=== PATIENT | female | born 1950 | race Hispanic/Latino ===

== ENCOUNTER 2019-05-22 19:59 | Inpatient (IN) | payer MEDICARE ==
[2019-05-22] MEDS ORDERED: ATROVENT IH ONE ×2 (20:22→22:16)
[2019-05-22] MEDS ORDERED: MAGNESIUM SULFATE 2GM/50ML 2 GM/50 ML BAG IV ONE (20:22)
[2019-05-22] MEDS ORDERED: PROVENTIL IH ONE (20:22)
[2019-05-22] MEDS ORDERED: SOLU-Medrol IV ONE (20:22)
[2019-05-22] MEDS ORDERED: LEVAQUIN 750MG/150ML 750 MG/150 ML BAG IV ONE (20:25)
[2019-05-22] MEDS ORDERED: VASELINE LIP THERAPY TP PRN (20:25)
[2019-05-22] MEDS ORDERED: VERSED IV PRN (20:25)
[2019-05-22] MEDS ORDERED: SUBLIMAZE IV PRN (20:25)
[2019-05-22] MEDS ORDERED: NACL 0.9% 1000 ML 1,000 ML IV ONE ×2 (20:25→21:28)
[2019-05-22] MEDS ORDERED: ARTIFICIAL TEARS OPHTH OINT OU PRN (20:25)
--- NOTE | 2019-05-22 20:31 | Emergency Department Report ---
ED General Adult HPI - General Chief complaint: Dyspnea/Respdistress Stated complaint: RESP DISTRESS Time Seen by Provider: 05/22/19 20:21 Source: EMS (verbal report received from EMS.ems notes not available at time of chart dictation), RN notes reviewed Mode of arrival: Stretcher Limitations: Altered Mental Status - History of Present Illness Initial comments: This is a 68-year-old female. This patient is not known to this provider previously. She presumably has a history of COPD. We do not know who her primary care doctor is. We do not know what medicine she takes or if she has any additional past medical history. The patient is brought to the hospital by EMS as a reported nontraumatic out of hospital respiratory arrest. EMS reports the patient was found in bed, actively breathing. The patient has had pulses consistently, and has not arrested. EMS intubated the patient in the field with a 6.0 endotracheal tube. EMS reports normal Accu-Chek. Upon arrival to the ER, the patient is intubated, with strong pulses, blood pressure in the 200s, and is awake and moving 4 extremities. Her Accu-Chek in the ER is within normal limits. The patient is given 20 mg of etomidate, 5 mg of Versed, 100 mg of rocuronium. Her 6.0 endotracheal tube is removed, she is placed on nasal cannula at 15 L/m, and receives aggressive bag valve mask ventilation. Using video laryngoscopy, a 7.5 endotracheal tube was inserted, with direct visualizat ion of the vocal cords, and appropriate post intubation and tidal capnography color change. After intubation, patient disconnected from the ventilator circuit, and she has diaphragmatic pressure and excursion applied to evaluate presumed air trapping. Patient is currently intubated and sedated, on a ventilator, and is not able to provide additional history. No family or friends are available at this time. The patient's physical exam was otherwise unremarkable, there were no signs of trauma. We contacted the intensive care physician on-call, Dr. Kiser, who agrees with placement into the intensive care unit. Patient will be covered empirically with fluids and antibiotics for community-acquired pneumonia/sepsis, and she'll be ventilated on lung protective strategy. -: unknown Quality: other Consistency: other Improves with: other Worsens with: other Associated Symptoms: other - Related Data Allergies Allergy/AdvReac Type Severity Reaction Status Date / Time Unable to Assess Allergy Unverified 05/22/19 20:18 ED Review of Systems ROS: Stated complaint: RESP DISTRESS Other details as noted in HPI Comment: Unobtainable due to pts medical conditions ED Past Medical Hx - Past Medical History Previous Medical History?: Yes Hx COPD: Yes Additional medical history: emphysema - Social History Smoking Status: Unknown if ever smoked ED Physical Exam - General Limitations: Altered Mental Status General appearance: obtunded - Head Head exam: Present: atraumatic, normocephalic - Eye Eye exam: Present: normal appearance, EOMI - ENT ENT exam: Present: mucous membranes dry, normal external ear exam - Neck Neck exam: Present: normal inspection, full ROM. Absent: tenderness, meningismus - Respiratory Respiratory exam: Present: respiratory distress, decreased breath sounds - Cardiovascular Cardiovascular Exam: Present: normal rhythm, tachycardia, normal heart sounds. Absent: systolic murmur, diastolic murmur, rubs, gallop - GI/Abdominal GI/Abdominal exam: Present: soft. Absent: distended, tenderness, rigid, pulsatile mass - Rectal Rectal exam: Present: normal inspection - External exam: Present: normal external exam - Extremities Exam Extremities exam: Present: normal inspection, other (2+ pulses noted in the bilateral upper, lower extremities. Compartments soft. No long bony tenderness. The pelvis is stable.). Absent: tenderness, pedal edema, joint swelling, calf tenderness - Back Exam Back exam: Present: normal inspection. Absent: tenderness, CVA tenderness (R), paraspinal tenderness, vertebral tenderness - Neurological Exam Neurological exam: Present: altered (patient intubated. Prior to paralysis and adduction, moving 4 extremities. Detailed neurologic examination is not possible at this time) - Skin Skin exam: Present: warm, dry, intact, normal color ED Course Vital Signs 05/22/19 05/22/19 05/22/19 20:18 20:24 20:26 Temperature 97.9 F Pulse Rate 102 H 93 H 88 Pulse Rate [ Anterior] Respiratory 22 18 Rate Respiratory Rate [Anterior] Blood Pressure 208/107 143/74 Blood Pressure 208/107 [Right] O2 Sat by Pulse 100 100 98 Oximetry 05/22/19 05/22/19 05/22/19 21:35 21:50 22:00 Temperature Pulse Rate 86 91 H 88 Pulse Rate [ Anterior] Respiratory 18 18 18 Rate Respiratory Rate [Anterior] Blood Pressure Blood Pressure 199/96 205/103 202/103 [Right] O2 Sat by Pulse 99 99 100 Oximetry 05/22/19 05/22/19 05/22/19 22:05 22:10 22:20 Temperature Pulse Rate 89 91 H 93 H Pulse Rate [ Anterior] Respiratory 18 18 Rate Respiratory Rate [Anterior] Blood Pressure 202/100 Blood Pressure 202/100 163/81 140/72 [Right] O2 Sat by Pulse 100 98 Oximetry 05/22/19 05/22/19 05/22/19 22:30 22:45 23:00 Temperature Pulse Rate 92 H 90 88 Pulse Rate [ Anterior] Respiratory 18 24 24 Rate Respiratory Rate [Anterior] Blood Pressure 127/67 133/73 Blood Pressure 129/68 [Right] O2 Sat by Pulse 97 96 98 Oximetry 05/22/19 05/22/19 05/22/19 23:15 23:30 23:44 Temperature Pulse Rate 90 88 87 Pulse Rate [ Anterior] Respiratory 24 24 24 Rate Respiratory Rate [Anterior] Blood Pressure 144/76 143/81 143/81 Blood Pressure [Right] O2 Sat by Pulse 99 99 99 Oximetry 05/22/19 05/23/19 05/23/19 23:45 00:00 00:15 Temperature Pulse Rate 87 87 87 Pulse Rate [ Anterior] Respiratory 24 24 24 Rate Respiratory Rate [Anterior] Blood Pressure 152/79 160/83 166/86 Blood Pressure [Right] O2 Sat by Pulse 99 99 98 Oximetry 05/23/19 05/23/19 05/23/19 00:30 00:45 01:00 Temperature Pulse Rate 86 89 85 Pulse Rate [ Anterior] Respiratory 24 24 24 Rate Respiratory Rate [Anterior] Blood Pressure 164/92 165/87 172/95 Blood Pressure 172/95 [Right] O2 Sat by Pulse 98 98 98 Oximetry 05/23/19 05/23/19 05/23/19 01:08 01:30 01:40 Temperature Pulse Rate 85 85 85 Pulse Rate [ Anterior] Respiratory 24 18 Rate Respiratory Rate [Anterior] Blood Pressure 172/95 154/81 Blood Pressure 154/81 [Right] O2 Sat by Pulse 99 97 Oximetry 05/23/19 05/23/19 05/23/19 02:00 02:15 02:30 Temperature Pulse Rate 85 85 85 Pulse Rate [ Anterior] Respiratory 24 24 24 Rate Respiratory Rate [Anterior] Blood Pressure 157/86 154/86 157/88 Blood Pressure [Right] O2 Sat by Pulse 96 96 95 Oximetry 05/23/19 05/23/19 05/23/19 02:45 03:00 03:15 Temperature Pulse Rate 83 82 82 Pulse Rate [ Anterior] Respiratory 23 24 18 Rate Respiratory Rate [Anterior] Blood Pressure 161/89 163/88 165/87 Blood Pressure [Right] O2 Sat by Pulse 96 96 96 Oximetry 05/23/19 05/23/19 05/23/19 03:30 03:35 03:45 Temperature Pulse Rate 82 82 83 Pulse Rate [ Anterior] Respiratory 24 22 20 Rate Respiratory Rate [Anterior] Blood Pressure 160/87 162/93 Blood Pressure 160/87 [Right] O2 Sat by Pulse 96 96 96 Oximetry 05/23/19 05/23/19 05/23/19 04:00 04:15 04:30 Temperature Pulse Rate 80 82 80 Pulse Rate [ Anterior] Respiratory 17 24 18 Rate Respiratory Rate [Anterior] Blood Pressure 166/89 161/90 163/92 Blood Pressure [Right] O2 Sat by Pulse 96 96 96 Oximetry 05/23/19 05/23/19 05/23/19 04:38 04:45 05:00 Temperature Pulse Rate 84 80 82 Pulse Rate [ Anterior] Respiratory 21 13 Rate Respiratory Rate [Anterior] Blood Pressure 166/92 157/91 Blood Pressure [Right] O2 Sat by Pulse 100 96 96 Oximetry 05/23/19 05/23/19 05/23/19 05:15 05:30 05:45 Temperature Pulse Rate 80 81 80 Pulse Rate [ Anterior] Respiratory 17 22 12 Rate Respiratory Rate [Anterior] Blood Pressure 164/91 163/91 164/90 Blood Pressure [Right] O2 Sat by Pulse 97 98 98 Oximetry 05/23/19 05/23/19 05/23/19 06:00 06:15 06:30 Temperature Pulse Rate 81 81 81 Pulse Rate [ Anterior] Respiratory 13 18 16 Rate Respiratory Rate [Anterior] Blood Pressure 162/96 161/88 163/91 Blood Pressure [Right] O2 Sat by Pulse 98 98 99 Oximetry 05/23/19 05/23/19 05/23/19 06:33 06:45 07:00 Temperature Pulse Rate 82 82 77 Pulse Rate [ Anterior] Respiratory 14 10 L 12 Rate Respiratory Rate [Anterior] Blood Pressure 155/88 144/82 Blood Pressure 163/91 [Right] O2 Sat by Pulse 99 98 99 Oximetry 05/23/19 05/23/19 05/23/19 07:15 07:30 07:36 Temperature 94.1 F L Pulse Rate 77 75 Pulse Rate [ Anterior] Respiratory 15 16 Rate Respiratory Rate [Anterior] Blood Pressure 138/78 128/76 Blood Pressure [Right] O2 Sat by Pulse 99 100 Oximetry 05/23/19 05/23/19 05/23/19 07:45 07:51 08:01 Temperature Pulse Rate 79 78 77 Pulse Rate [ Anterior] Respiratory 20 18 Rate Respiratory Rate [Anterior] Blood Pressure 132/76 132/76 132/76 Blood Pressure [Right] O2 Sat by Pulse 100 100 100 Oximetry 05/23/19 05/23/19 05/23/19 08:15 08:30 09:00 Temperature Pulse Rate 79 83 85 Pulse Rate [ Anterior] Respiratory 25 H 13 24 Rate Respiratory Rate [Anterior] Blood Pressure 125/73 121/72 122/67 Blood Pressure [Right] O2 Sat by Pulse 98 99 99 Oximetry 05/23/19 05/23/19 05/23/19 09:30 10:00 10:30 Temperature Pulse Rate 90 89 88 Pulse Rate [ Anterior] Respiratory 12 12 24 Rate Respiratory Rate [Anterior] Blood Pressure 122/65 125/74 129/72 Blood Pressure [Right] O2 Sat by Pulse 100 100 100 Oximetry 05/23/19 05/23/19 05/23/19 11:30 11:31 12:00 Temperature 98.7 F Pulse Rate 93 H 75 Pulse Rate [ Anterior] Respiratory 24 24 Rate Respiratory Rate [Anterior] Blood Pressure 136/71 132/74 Blood Pressure [Right] O2 Sat by Pulse 99 100 Oximetry 05/23/19 05/23/19 05/23/19 12:30 12:39 13:00 Temperature Pulse Rate 78 75 74 Pulse Rate [ Anterior] Respiratory 24 24 Rate Respiratory Rate [Anterior] Blood Pressure 146/82 146/82 141/81 Blood Pressure [Right] O2 Sat by Pulse 100 100 100 Oximetry 05/23/19 05/23/19 05/23/19 13:31 14:00 14:30 Temperature Pulse Rate 76 73 74 Pulse Rate [ Anterior] Respiratory 24 24 24 Rate Respiratory Rate [Anterior] Blood Pressure 137/89 144/78 143/82 Blood Pressure [Right] O2 Sat by Pulse 100 100 100 Oximetry 05/23/19 05/23/19 05/23/19 15:00 15:30 16:00 Temperature Pulse Rate 74 75 78 Pulse Rate [ Anterior] Respiratory 24 24 24 Rate Respiratory Rate [Anterior] Blood Pressure 137/76 146/78 144/74 Blood Pressure [Right] O2 Sat by Pulse 99 100 100 Oximetry 05/23/19 05/23/19 05/23/19 16:30 17:00 17:30 Temperature Pulse Rate 75 73 73 Pulse Rate [ Anterior] Respiratory 24 24 24 Rate Respiratory Rate [Anterior] Blood Pressure 126/69 116/62 118/63 Blood Pressure [Right] O2 Sat by Pulse 100 Oximetry 05/23/19 05/23/19 05/23/19 18:00 18:30 19:00 Temperature Pulse Rate 76 74 74 Pulse Rate [ Anterior] Respiratory 24 24 24 Rate Respiratory Rate [Anterior] Blood Pressure 121/69 118/61 123/66 Blood Pressure [Right] O2 Sat by Pulse 100 100 100 Oximetry 05/23/19 05/23/19 05/23/19 19:20 19:30 20:00 Temperature 98.3 F Pulse Rate 74 78 Pulse Rate [ Anterior] Respiratory 24 24 Rate Respiratory Rate [Anterior] Blood Pressure 119/61 136/68 Blood Pressure [Right] O2 Sat by Pulse 100 100 99 Oximetry 05/23/19 05/23/19 05/23/19 20:30 20:53 21:00 Temperature Pulse Rate 73 72 73 Pulse Rate [ Anterior] Respiratory 24 22 Rate Respiratory Rate [Anterior] Blood Pressure 125/69 133/75 133/75 Blood Pressure [Right] O2 Sat by Pulse 98 100 98 Oximetry 05/23/19 05/23/19 05/24/19 22:00 23:00 00:00 Temperature Pulse Rate 70 84 70 Pulse Rate [ Anterior] Respiratory 24 18 Rate Respiratory Rate [Anterior] Blood Pressure 132/72 129/72 133/77 Blood Pressure [Right] O2 Sat by Pulse 100 99 100 Oximetry 05/24/19 05/24/19 05/24/19 00:01 00:11 01:00 Temperature Pulse Rate 74 71 68 Pulse Rate [ Anterior] Respiratory 24 24 24 Rate Respiratory Rate [Anterior] Blood Pressure 128/69 128/69 123/68 Blood Pressure [Right] O2 Sat by Pulse 100 100 100 Oximetry 05/24/19 05/24/19 05/24/19 02:00 03:00 04:00 Temperature Pulse Rate 66 78 85 Pulse Rate [ Anterior] Respiratory 24 24 25 H Rate Respiratory Rate [Anterior] Blood Pressure 123/71 131/81 144/77 Blood Pressure [Right] O2 Sat by Pulse 100 97 100 Oximetry 05/24/19 05/24/19 05/24/19 05:00 06:00 07:00 Temperature Pulse Rate 65 68 69 Pulse Rate [ Anterior] Respiratory 24 18 24 Rate Respiratory Rate [Anterior] Blood Pressure 136/75 137/76 145/76 Blood Pressure [Right] O2 Sat by Pulse 100 98 98 Oximetry 05/24/19 05/24/19 05/24/19 07:16 08:00 08:30 Temperature Pulse Rate 65 78 64 Pulse Rate [ Anterior] Respiratory 18 24 Rate Respiratory Rate [Anterior] Blood Pressure 141/76 154/83 149/82 Blood Pressure [Right] O2 Sat by Pulse 100 99 98 Oximetry 05/24/19 05/24/19 05/24/19 08:47 08:51 09:00 Temperature Pulse Rate 61 62 Pulse Rate [ 82 Anterior] Respiratory 24 24 Rate Respiratory 18 Rate [Anterior] Blood Pressure 153/83 162/85 Blood Pressure [Right] O2 Sat by Pulse 98 99 Oximetry 05/24/19 05/24/19 09:11 09:32 Temperature Pulse Rate 85 87 Pulse Rate [ Anterior] Respiratory 19 20 Rate Respiratory Rate [Anterior] Blood Pressure 162/85 Blood Pressure [Right] O2 Sat by Pulse 100 99 Oximetry - Reevaluation(s) Reevaluation #1: 05/22/19 21:08 Differential diagnosis, including not limited to: Respiratory failure, secondary to COPD, pulmonary embolism, pneumonia, sepsis, pneumothorax, or cranial lesion Assessment and plan: 68-year-old female with respiratory failure, requiring intubation, currently sedated, hemodynamically stable, physical exam otherwise unremarkable. CT scan of the brain, chest have been ordered. IV fluids ordered, antibiotics ordered, sedation package ordered. Critical care has been consulted. We will reassess once her data points have resulted. Anticipate admission to this hospital for further care. Long-term prognosis is poor, patient most likely has end-stage COPD. Reevaluation #2: 05/22/19 21:28 Laboratory studies reviewed and appreciated. Patient requires emergent an exp edient diagnostics to exclude potentially time sensitive diagnoses, such as pulmonary embolism, aortic dissection, and pneumothorax. Therefore, CT scan of the chest is required, and is a much more sensitive examination than nuclear medicine study for multiple times sensitive entities. Additional IV fluids ordered. Reevaluation #3: 05/22/19 21:[address] Carrizales accepts to the icu Reevaluation #4: 05/22/19 22:04 cta chest negative for pe, pneumothorax, large pneumonia Shows expected changes associated with COPD. - EJ/Peripheral Line Neck L Time Out Performed: Yes Indications: multiple IV sites needed Skin Cleansed in Sterile Fashion: Yes Size: 18 Dressing Placed: Tegaderm Patient Tolerated Procedure: well - Intubation Time Out Performed: No (emergency situation) Sedative: Etomidate Mg Given: 20 Paralytic: Rocuronium Mg Given: 100 Laryngoscope: fiberoptic video scope Size: 3 ET Tube Size: 7.5 Tube Secured Depth (cm): 23 Tube Secured Location: teeth Tube Placement Confirmation: visualized tube passing t, equal breath sounds bilat, no breath sounds over epi, confirmation by capnometr Patient Tolerated Procedure: well Intubation Complications: none ED Medical Decision Making - Lab Data Result diagrams: 05/24/19 03:55 05/24/19 03:55 Vital Signs 05/22/19 20:18 Temperature 97.9 F Pulse Rate 102 H Respiratory 22 Rate Blood Pressure 208/107 Blood Pressure 208/107 [Right] O2 Sat by Pulse 100 Oximetry Vital Signs 05/22/19 20:18 Temperature 97.9 F Pulse Rate 102 H Respiratory 22 Rate Blood Pressure 208/107 Blood Pressure 208/107 [Right] O2 Sat by Pulse 100 Oximetry Lab Results 05/22/19 05/22/19 05/22/19 Range/Units 20:30 20:30 20:30 WBC 17.9 H (4.5-11.0) K/mm3 RBC 3.92 (3.65-5.03) M/mm3 Hgb 11.1 (10.1-14.3) gm/dl Hct 36.1 (30.3-42.9) % MCV 92 (79-97) fl MCH 28 (28-32) pg MCHC 31 (30-34) % RDW 17.4 H (13.2-15.2) % Plt Count 467 H (140-440) K/mm3 Lymph # [employer] PT 14.1 (12.2-14.9) Sec. INR 1.12 (0.87-1.13) APTT 24.8 (24.2-36.6) Sec. Sodium 135 L (137-145) mmol/L Potassium 4.6 (3.6-5.0) mmol/L Chloride 96.0 L (98-107) mmol/L Carbon Dioxide 15 L (22-30) mmol/L Anion Gap 29 mmol/L BUN 28 H (7-17) mg/dL Creatinine 1.6 H (0.7-1.2) mg/dL Estimated GFR 32 ml/min BUN/Creatinine Ratio 18 % Glucose 282 H (65-100) mg/dL Calcium 8.9 (8.4-10.2) mg/dL Magnesium 2.10 (1.7-2.3) mg/dL Total Bilirubin 0.20 (0.1-1.2) mg/dL ALT 76 H (7-56) units/L Alkaline Phosphatase 154 H (35-129) units/L Troponin T (0.00-0.029) ng/mL Total Protein 6.9 (6.3-8.2) g/dL Albumin 3.0 L (3.9-5) g/dL Albumin/Globulin Ratio 0.8 % // Range/Units 20:30 WBC (4.5-11.0) K/mm3 RBC (3.65-5.03) M/mm3 Hgb (10.1-14.3) gm/dl Hct (30.3-42.9) % MCV (79-97) fl MCH (28-32) pg MCHC (30-34) % RDW (13.2-15.2) % Plt Count (140-440) K/mm3 Lymph # PT (12.2-14.9) Sec. INR (0.87-1.13) APTT (24.2-36.6) Sec. Sodium (137-145) mmol/L Potassium (3.6-5.0) mmol/L Chloride (98-107) mmol/L Carbon Dioxide (22-30) mmol/L Anion Gap mmol/L BUN (7-17) mg/dL Creatinine (0.7-1.2) mg/dL Estimated GFR ml/min BUN/Creatinine Ratio % Glucose (65-100) mg/dL Calcium (8.4-10.2) mg/dL Magnesium (1.7-2.3) mg/dL Total Bilirubin (0.1-1.2) mg/dL ALT (7-56) units/L Alkaline Phosphatase (35-129) units/L Troponin T < 0.010 (0.00-0.029) ng/mL Total Protein (6.3-8.2) g/dL Albumin (3.9-5) g/dL Albumin/Globulin Ratio % - EKG Data -: EKG Interpreted by Oh EKG shows normal: sinus rhythm Rate: tachycardia - EKG Data When compared to previous EKG there are: previous EKG unavailable 05/22/19 21:09 This is a sinus rhythm, 96 bpm, normal axis, QTC 449 ms, left bundle branch block morphology, interventricular conduction delay, the EKG is abnormal, the EKG is not consistent with ST elevation myocardial infarction. - Radiology Data Radiology results: report reviewed, image reviewed Print Report Referring Physician: CARRIE MARCOS Patient Name: KEN DELA CRUZ Date of : 1950 Sex: Female Report Date: 2019-05-22 Report Status: Finalized Findings [facility] [address] [place] [address] XRay Report Signed Patient: KEN DELA CRUZ MR#: [id number] 33 : 1950 Acct:[id number] Age/Sex: 68 / F ADM Date: 05/22/19 Loc: ED Attending Dr: Ordering Physician: CARRIE MARCOS MD Date of Service: 05/22/19 Procedure(s): XR chest 1V ap Accession Number(s): [id number] cc: CARRIE MARCOS MD Fluoro Time In Minutes: CHEST 1 VIEW INDICATION: resp arrest/ETT PLACEMENT COMPARISON: None FINDINGS: Support devices: Endotracheal tube in good position. Heart: Normal Lungs/Pleura: No acute pulmonary or pleural findings. IMPRESSION: 1. Endotracheal tube in good position. Signer Name: Puma Parrish MD Signed: 05/22/2019 8:40 PM Workstation Name: [id number] Transcribed By: TM Dictated By: Puma Parrish MD Electronically Authenticated By: Pmua Parrish MD Signed Date/Time: 05/22/192039 Critical Care Time: Yes Critical care time in (mins) excluding proc time.: 60 Critical care attestation.: If time is entered above; I have spent that time in minutes in the direct care of this critically ill patient, excluding procedure time. ED Disposition Clinical Impression: SIRS (systemic inflammatory response syndrome), ERIKA (acute kidney injury) Acute respiratory failure Qualifiers: Respiratory failure complication: unspecified whether with hypoxia or hypercapnia Qualified Code(s): J96.00 - Acute respiratory failure, unspecified whether with hypoxia or hypercapnia Disposition: 09 OP ADMIT IP TO THIS HOSP Is pt being admited?: Yes Condition: Critical
--- NOTE | 2019-05-22 20:44 | XRay Report ---
CHEST 1 VIEW INDICATION: resp arrest/ETT PLACEMENT COMPARISON: None FINDINGS: Support devices: Endotracheal tube in good position. Heart: Normal Lungs/Pleura: No acute pulmonary or pleural findings. IMPRESSION: 1. Endotracheal tube in good position. Signer Name: Puma Parrish MD Signed: 05/22/2019 8:40 PM Workstation Name: [id number]
[2019-05-22 20:52] LABS: Hematocrit 36.1 % (30.3-42.9); Hemoglobin 11.1 gm/dl (10.1-14.3); Mean Corpuscular HGB Conc 31 % (30-34); Mean Corpuscular Volume 92 fl (79-97); Platelet Count 467 K/mm3 (140-440); Red Blood Count 3.92 M/mm3 (3.65-5.03); Red Cell Distribution Width 17.4 % (13.2-15.2)
[2019-05-22] MEDS: fentaNYL DRIP Premix 2,000 MCG/100 ML BAG IV SCH (21:00)
[2019-05-22 21:18] LABS: INR 1.12 (0.87-1.13); Partial Thromboplastin Time 24.8 Sec. (24.2-36.6)
[2019-05-22 21:22] LABS: Calcium 8.9 mg/dL (8.4-10.2)
--- NOTE | 2019-05-22 21:41 | Cat Scan Report ---
CT head/brain wo con INDICATION: ams resp arrest. TECHNIQUE: All CT scans at this location are performed using CT dose reduction for ALARA by means of automated e xposure control. COMPARISON: None available. FINDINGS: Moderate mucosal thickening in the maxillary and ethmoid sinuses. Chronic periventricular ischemic ch aga bilaterally, slightly more prominent on the right. No mass, hemorrhage or other acute abnormality. IMPRESSION: 1. Chronic changes. Sinusitis. No definite acute abnormality. Signer Name: Puma Parrish MD Signed: 05/22/2019 9:37 PM Workstation Name: [id number]
[2019-05-22] MEDS: MIDAZOLAM 100 MG in NACL 0.9% 80 ML IV SCH (21:50)
--- NOTE | 2019-05-22 21:58 | Cat Scan Report ---
CTA CHEST WITH IV CONTRAST INDICATION / CLINICAL INFORMATION: ams resp arrest. TECHNIQUE: Axial CT images were obtained through the chest after injection of IV contrast. 3 plane MIP and/or 3D reconstructions were produced. All CT scans at this location are performed using CT dose reduction f or ALARA by means of automated exposure control. COMPARISON: None available. FINDINGS: Endotracheal tubes in good position PULMONARY ARTERIES: No pulmonary emboli. THORACIC AORTA: No significant abnormality. HEART: No significant abnormality. CORONARY ARTERIES: No significant calcification. PLEURA: No pleural effusion. No pneumothorax. LYMPH NODES: No significant adenopathy. LUNGS: Lung volumes are increased. Multiple small pulmonary nodules are present predominantly in the inferior aspect of the lingular segment left upper lobe as well as both lung bases. Bronchiectasis pr esent both lower lobes ADDITIONAL FINDINGS: None. UPPER ABDOMEN: No acute findings. SKELETAL STRUCTURES: No significant osseous abnormality. IMPRESSION: 1. No CT evidence for pulmonary embolism. 2. Chronic lung disease with bronchiectasis both lower lobes Signer Name: Thai Kruse MD Signed: 05/22/2019 9:54 PM Workstation Name: [id number]
[2019-05-22] MEDS ORDERED: APRESOLINE IV ONE (22:05)
[2019-05-22] MEDS ORDERED: APRESOLINE ONE (22:06)
[2019-05-22 22:12] LABS: Bilirubin,Urine NEG (Negative); Color,Urine Yellow (Yellow)
[2019-05-22 22:13] LABS: Blood,Urine SM (Negative); Mucus,Urine FEW /HPF; Urobilinogen,Urine < 2.0 mg/dL (<2.0)
[2019-05-22 22:22] LABS: Band Neutrophils # (Manual) 1.1 K/mm3; Basophils % (Manual) 0 % (0.0-1.8); Eosinophils % (Manual) 0 % (0.0-4.3); Total Cells Counted 100
[2019-05-22 22:23] LABS: Anisocytosis 1+
[2019-05-22] MEDS ORDERED: ZOFRAN IV PRN (22:50)
[2019-05-22] MEDS ORDERED: SODIUM CHLORIDE FLUSH SYRINGE 10 ML IV PRN (22:50)
[2019-05-22] MEDS ORDERED: NACL 0.9% 1000 ML 1,000 ML IV SCH (23:00)
--- NOTE | 2019-05-22 23:03 | History and Physical Report ---
History of Present Illness Date of examination: 05/22/19 Date of admission: 05/22/19 21:45 Chief complaint: Respiratory arrest per report History of present illness: Patient is a 68 year old female with history of severe COPD who was brought to the ED via EMS due to respiratory arrest. It was reported that the patient was intubated by EMS prior to arrival to the ED. Of note, patient was unable to give history because she is intubated and sedated. History was obtained from her son and granddaughter who were at the bedside. They reported that the patient has been having cough with worsening shortness of breath for 1 week. No reported history of chest pain or fever. Patient does not use oxygen at home per family. Past History Past Medical History: COPD, other (unknown cancer in remission) Past Surgical History: No surgical history Social history: smoking (40 years hx of cig smoking. She currently smokes 1PPD. No reported hx of alcohol or illicit drug use) Family history: other (Per her son, her sister was diagnosed with breast cancer in her 60's) Medications and Allergies Allergies Allergy/AdvReac Type Severity Reaction Status Date / Time Unable to Assess Allergy Unverified 05/22/19 20:18 Active Meds: Active Medications Acetaminophen (Tylenol) 650 mg PO Q4H PRN PRN Reason: Pain MILD(1-3)/Fever >100.5/ALARCON Famotidine (Pepcid) 20 mg IV DAILY [facility] Fentanyl (Sublimaze) 50 mcg IV Q10MIN PRN PRN Reason: ANALGESIA Heparin Sodium (Porcine) (Heparin) 5,000 unit SUB-Q Q12HR [facility]AR Hydrophilic Ointment (Vaseline Lip Therapy) 1 applic TP Q2HR PRN PRN Reason: Dry Lips Fentanyl Citrate (Fentanyl Drip Premix) 2,000 mcg in 100 mls @ 1.62 mls/hr IV TITR [facility]AR; Protocol Last Admin: 05/22/19 21:00 Dose: 1 mcg/kg/hr, 1.62 mls/hr Documented by: Midazolam HCl 100 mg/ Sodium (Chloride) 100 mls @ 2 mls/hr IV TITR [facility]AR; Protocol Last Admin: 05/22/19 21:50 Dose: 2 mg/hr, 2 mls/hr Documented by: Levofloxacin/Dextrose (Levaquin 750mg/150ml) 750 mg in 150 mls @ 100 mls/hr IV Q24HR OSCAR; Protocol Sodium Chloride (Nacl 0.9% 1000 Ml) 1,000 mls @ 75 mls/hr IV DIRECT OSCAR Midazolam HCl (Versed) 2 mg IV Q10MIN PRN PRN Reason: Sedation Multi-Ingred Cream/Lotion/Oil/Oint (Artificial Tears Ophth Oint) 1 applic OU Q4HR PRN PRN Reason: Dry Eye(s) Ondansetron HCl (Zofran) 4 mg IV Q8H PRN PRN Reason: Nausea And Vomiting Sodium Chloride (Sodium Chloride Flush Syringe 10 Ml) 10 ml IV BID OSCAR Sodium Chloride (Sodium Chloride Flush Syringe 10 Ml) 10 ml IV PRN PRN PRN Reason: LINE FLUSH Review of Systems ROS unobtainable: due to endotracheal tube Exam - Constitutional Vitals: Temp Pulse Resp BP Pulse Ox 97.9 F 88 18 202/100 100 05/22/19 20:18 05/22/19 22:05 05/22/19 22:05 05/22/19 22:05 05/22/19 22:05 General appearance: Present: no acute distress, other (Pt is intubated and sedated) - EENT Eyes: Present: PERRL ENT: clear oral mucosa - Neck Neck: Present: supple, normal ROM - Respiratory Respiratory effort: normal Respiratory: bilateral: CTA, diminished - Cardiovascular Rhythm: regular Heart Sounds: Present: S1 & S2. Absent: rub, click - Extremities Extremities: pulses symmetrical, No edema Peripheral Pulses: within normal limits - Abdominal General gastrointestinal: Present: soft, non-tender, non-distended, normal bowel sounds Female genitourinary: Present: deferred - Integumentary Integumentary: Present: clear, warm, dry - Musculoskeletal Musculoskeletal: other (unable to assess because pt is intubated and sedated) - Psychiatric Psychiatric: other (unable to assess because pt is intubated and sedated) - Neurologic Neurologic: other (unable to assess because pt is intubated and sedated) Results - Labs CBC & Chem 7: 05/22/19 20:30 05/22/19 20:30 Labs: Laboratory Last Values WBC 17.9 K/mm3 (4.5-11.0) H 05/22/19 20:30 RBC 3.92 M/mm3 (3.65-5.03) 05/22/19 20:30 Hgb 11.1 gm/dl (10.1-14.3) 05/22/19 20:30 Hct 36.1 % (30.3-42.9) 05/22/19 20:30 MCV 92 fl (79-97) 05/22/19 20:30 MCH 28 pg (28-32) 05/22/19 20:30 MCHC 31 % (30-34) 05/22/19 20:30 RDW 17.4 % (13.2-15.2) H 05/22/19 20:30 Plt Count 467 K/mm3 (140-440) H 05/22/19 20:30 Lymph # [employer]per 05/22/19 20:30 Add Manual Diff Complete 05/22/19 20:30 Total Counted 100 05/22/19 20:30 Seg Neuts % (Manual) 68.0 % (40.0-70.0) 05/22/19 20:30 6.0 % 05/22/19 20:30 23.0 % (13.4-35.0) 05/22/19 20:30 Reactive Lymphs % (Man) 0 % 05/22/19 20:30 3.0 % (0.0-7.3) 05/22/19 20:30 0 % (0.0-4.3) 05/22/19 20:30 0 % (0.0-1.8) 05/22/19 20:30 0 % 05/22/19 20:30 0 % 05/22/19 20:30 0 % 05/22/19 20:30 0 % 05/22/19 20:30 Nucleated RBC % Not Reportable 05/22/19 20:30 Seg Neutrophils # Man 12.2 K/mm3 (1.8-7.7) H 05/22/19 20:30 Band Neutrophils # 1.1 K/mm3 05/22/19 20:30 4.1 K/mm3 (1.2-5.4) 05/22/19 20:30 Abs React Lymphs (Man) 0.0 K/mm3 05/22/19 20:30 0.5 K/mm3 (0.0-0.8) 05/22/19 20:30 0.0 K/mm3 (0.0-0.4) 05/22/19 20:30 0.0 K/mm3 (0.0-0.1) 05/22/19 20:30 0.0 K/mm3 05/22/19 20:30 0.0 K/mm3 05/22/19 20:30 0.0 K/mm3 05/22/19 20:30 Blast Cells # 0.0 K/mm3 05/22/19 20:30 WBC Morphology Not Reportable 05/22/19 20:30 WBC Morphology TNR 05/22/19 20:30 Hypersegmented Neuts Not Reportable 05/22/19 20:30 Hyposegmented Neuts Not Reportable 05/22/19 20:30 Hypogranular Neuts Not Reportable 05/22/19 20:30 Not Reportable 05/22/19 20:30 Not Reportable 05/22/19 20:30 Not Reportable 05/22/19 20:30 Not Reportable 05/22/19 20:30 Not Reportable 05/22/19 20:30 Not Reportable 05/22/19 20:30 Not Reportable 05/22/19 20:30 Not Reportable 05/22/19 20:30 Plt Clumps, EDTA Not Reportable 05/22/19 20:30 Not Reportable 05/22/19 20:30 Not Reportable 05/22/19 20:30 Not Reportable 05/22/19 20:30 Plt Morphology Comment Not Reportable 05/22/19 20:30 RBC Morphology Not Reportable 05/22/19 20:30 Dimorphic RBCs Not Reportable 05/22/19 20:30 Not Reportable 05/22/19 20:30 Not Reportable 05/22/19 20:30 Not Reportable 05/22/19 20:30 1+ 05/22/19 20:30 Not Reportable 05/22/19 20:30 Not Reportable 05/22/19 20:30 Not Reportable 05/22/19 20:30 Not Reportable 05/22/19 20:30 Not Reportable 05/22/19 20:30 Not Reportable 05/22/19 20:30 Not Reportable 05/22/19 20:30 Not Reportable 05/22/19 20:30 Not Reportable 05/22/19 20:30 Not Reportable 05/22/19 20:30 Not Reportable 05/22/19 20:30 Not Reportable 05/22/19 20:30 Not Reportable 05/22/19 20:30 Not Reportable 05/22/19 20:30 Not Reportable 05/22/19 20:30 Acanthocytes (Spur) Not Reportable 05/22/19 20:30 Rouleaux Not Reportable 05/22/19 20:30 Not Reportable 05/22/19 20:30 Not Reportable 05/22/19 20:30 Not Reportable 05/22/19 20:30 Not Reportable 05/22/19 20:30 Hem Pathologist Commnt No 05/22/19 20:30 PT 14.1 Sec. (12.2-14.9) 05/22/19 20:30 INR 1.12 (0.87-1.13) 05/22/19 20:30 APTT 24.8 Sec. (24.2-36.6) 05/22/19 20:30 POC ABG pH 7.170 (7.35-7.45) L 05/22/19 22:37 POC ABG pCO2 62.0 (35-45) H 05/22/19 22:37 POC ABG pO2 101 (80-105) 05/22/19 22:37 POC ABG HCO3 22.6 (22-26 mml/L) 05/22/19 22:37 POC ABG Total CO2 24 (23-27mmol/L) 05/22/19 22:37 POC ABG O2 Sat 96 05/22/19 22:37 POC ABG Base Excess -6 ((-2) - (+3)mmol/L) 05/22/19 22:37 50 % 05/22/19 22:37 Sodium 135 mmol/L (137-145) L 05/22/19 20:30 Potassium 4.6 mmol/L (3.6-5.0) 05/22/19 20:30 Chloride 96.0 mmol/L (98-107) L 05/22/19 20:30 Carbon Dioxide 15 mmol/L (22-30) L 05/22/19 20:30 29 mmol/L 05/22/19 20:30 BUN 28 mg/dL (7-17) H 05/22/19 20:30 1.6 mg/dL (0.7-1.2) H 05/22/19 20:30 Estimated GFR 32 ml/min 05/22/19 20:30 18 % 05/22/19 20:30 Glucose 282 mg/dL (65-100) H 05/22/19 20:30 Lactic Acid 10.40 mmol/L (0.7-2.0) H* 05/22/19 20:46 Calcium 8.9 mg/dL (8.4-10.2) 05/22/19 20:30 Magnesium 2.10 mg/dL (1.7-2.3) 05/22/19 20:30 0.20 mg/dL (0.1-1.2) 05/22/19 20:30 AST 156 units/L (5-40) H 05/22/19 20:30 ALT 76 units/L (7-56) H 05/22/19 20:30 154 units/L (35-129) H 05/22/19 20:30 110 units/L (30-135) 05/22/19 20:30 < 0.010 ng/mL (0.00-0.029) 05/22/19 20:30 6.9 g/dL (6.3-8.2) 05/22/19 20:30 3.0 g/dL (3.9-5) L 05/22/19 20:30 0.8 % 05/22/19 20:30 Yellow (Yellow) 05/22/19 21:53 Clear (Clear) 05/22/19 21:53 6.0 (5.0-7.0) 05/22/19 21:53 Ur Specific Norman 1.016 (1.003-1.030) 05/22/19 21:53 30 mg/dl mg/dL (Negative) 05/22/19 21:53 50 mg/dL (Negative) 05/22/19 21:53 Neg mg/dL (Negative) 05/22/19 21:53 Sm (Negative) 05/22/19 21:53 Neg (Negative) 05/22/19 21:53 Neg (Negative) 05/22/19 21:53 < 2.0 mg/dL (<2.0) 05/22/19 21:53 Ur Leukocyte Esterase Neg (Negative) 05/22/19 21:53 5.0 /HPF (0.0-6.0) 05/22/19 21:53 2.0 /HPF (0.0-6.0) 05/22/19 21:53 U Epithel Cells (Auto) < 1.0 /HPF (0-13.0) 05/22/19 21:53 Few /HPF 05/22/19 21:53 Assessment and Plan Assessment and plan: Severe sepsis probably 2/2 bronchiectasis -On IV antibiotic with levofloxacin -CTA chest showed chronic lung disease with bronchiectasis both lower lobes -Blood and sputum cultures pending Acute on chronic respiratory failure with hypercapnia -S/p intubation on MV -Pulmonology consulted Acute severe COPD exacerbation -On IV steroids Hypertensive urgency -on PRN antihypertensive Hyperglycemia -will check hba1c level ERIKA -Probably vasomotor nephropathy -On IVF, will monitor cr level Acute metabolic acidosis -Likely secondary to the renal impairment -We will monitor level Transaminitis -Probably secondary to the sepsis -We'll monitor levels Moderate protein calorie malnutrition -Nutrition consulted DVT prophylaxis with heparin and GI prophylaxis with famotidine Disposition: I spent 45 minutes providing critical care to this seriously ill patient who requires frequent reassessments of her respiratory status.
--- NOTE | 2019-05-22 23:19 | XRay Report ---
ABDOMEN 1 VIEW 10:48 PM INDICATION / CLINICAL INFORMATION: Post NG tube insertion. Verify placement. COMPARISON: None available. FINDINGS: TUBES / LINES: There is a nasogastric tube with the tip overlying the gastric body and the proximal s idehole below the gastroesophageal junction. BOWEL GAS PATTERN: The bowel gas pattern is nonobstructive. FREE AIR / EXTRALUMINAL GAS: None seen. ADDITIONAL FINDINGS: There is contrast in the urinary tract from the patient's earlier CT scan. IMPRESSION: Nasogastric tube in good position radiographically. Signer Name: Carlos Alberto Mantilla MD Signed: 05/22/2019 11:14 PM Workstation Name: [id number]
[2019-05-22] MEDS ORDERED: NACL 0.9% 1000 ML 1,000 ML ONE (23:25)
[2019-05-23] MEDS ORDERED: SOLU-Medrol ONE ×3 (01:06→18:33)
[2019-05-23] MEDS ORDERED: APRESOLINE ONE (01:07)
[2019-05-23] MEDS: SOLU-Medrol IV SCH ×3 (01:08→18:37)
[2019-05-23] MEDS ORDERED: D50W (25GM) Syringe IV PRN (01:08)
[2019-05-23] MEDS: APRESOLINE IV PRN (01:08)
[2019-05-23] MEDS ORDERED: VERSED IV ONE (03:00)
[2019-05-23] MEDS ORDERED: ZEMURON IV ONE (03:00)
[2019-05-23] MEDS ORDERED: AMIDATE IV ONE (03:00)
[2019-05-23 05:40] LABS: Hematocrit 37.8 % (30.3-42.9); Hemoglobin 12.2 gm/dl (10.1-14.3); Mean Corpuscular HGB Conc 32 % (30-34); Mean Corpuscular Volume 88 fl (79-97); Platelet Count 420 K/mm3 (140-440); Red Blood Count 4.31 M/mm3 (3.65-5.03); Red Cell Distribution Width 16.8 % (13.2-15.2)
[2019-05-23 06:18] LABS: Hemolysis Index 262
[2019-05-23 06:25] LABS: Blood Urea Nitrogen TNR mg/dL (7-17)
[2019-05-23 06:26] LABS: Alanine Aminotransferase TNR units/L (7-56); Albumin TNR g/dL (3.9-5); BUN/Creatinine Ratio TNR; Calcium TNR mg/dL (8.4-10.2)
[2019-05-23 06:48] LABS: Basophils % (Manual) 0 % (0.0-1.8); Total Cells Counted 100
[2019-05-23 06:49] LABS: Eosinophils % (Manual) 0 % (0.0-4.3); Platelet Estimate Consistent w Auto; RBC Morphology Normal
[2019-05-23 08:55] LABS: Alanine Aminotransferase 80 units/L (7-56); Albumin 2.9 g/dL (3.9-5); BUN/Creatinine Ratio 22; Blood Urea Nitrogen 26 mg/dL (7-17); Calcium 7.9 mg/dL (8.4-10.2); Hemolysis Index 88
[2019-05-23 09:05] LABS: ABG Base Excess -2.8 mmol/L (-2.0-3.0); ABG HCO3 23.4 mmol/L (20.0-26.0); ABG Methemoglobin 0.4 % (0.0-1.5); ABG Oxygen Saturation 96.2 % (95.0-99.0); ABG PCO2 47.2 mm Hg; ABG PH 7.314 pH Units (7.350-7.450); ABG PO2 83.9 mm Hg (80.0-90.0)
[2019-05-23] MEDS: HumaLOG SUB-Q SCH ×3 (09:14→18:38)
--- NOTE | 2019-05-23 09:14 | XRay Report ---
CHEST 1 VIEW INDICATION: follow up respiratory failure COMPARISON: 05/22/2019 FINDINGS: Support devices: Endotracheal tube position is unchanged. Nasogastric tube has been placed and appear s to pass into the stomach. Heart: Stable. Lungs/Pleura: There has developed new pleural-parenchymal disease in the left base, most suggestive o f left lower lobe atelectasis/consolidation. Right lung remains clear. IMPRESSION: 1. New left lower lobe disease. Signer Name: Puma Parrish MD Signed: 05/23/2019 9:09 AM Workstation Name: [id number]
[2019-05-23] MEDS ORDERED: PEPCID IV ONE (09:41)
[2019-05-23] MEDS ORDERED: HEPARIN ONE ×2 (09:41→22:17)
[2019-05-23] MEDS: PEPCID IV SCH (09:51)
[2019-05-23] MEDS: SODIUM CHLORIDE FLUSH SYRINGE 10 ML IV SCH ×2 (09:51→22:19)
[2019-05-23] MEDS: HEPARIN SUB-Q SCH ×2 (09:51→22:18)
[2019-05-23] MEDS ORDERED: LEVAQUIN 750MG/150ML 750 MG/150 ML BAG IV SCH (10:00)
[2019-05-23] MEDS ORDERED: NACL 0.9% 1000 ML 1,000 ML IV ONE (11:00)
[2019-05-23] MEDS ORDERED: fentaNYL DRIP Premix 2,000 MCG/100 ML BAG IV ONE (11:22)
--- NOTE | 2019-05-23 12:44 | Consultation ---
History of Present Illness Reason for consult: dyspnea, COPD History of present illness: This is a 68yo wf w hx of tobacco abuse endstage copd who comes in w reports of sob. This had been ongoing and ems was called. She was intubated. She had cxr done that showed evidence of hyperinflation. Presently she is on vent and is sedated. She has copious secretion. She has a hx of copd and smoked greater than 40 yrs. No family available. Past History Past Medical History: COPD, other (unknown cancer in remission) Past Surgical History: No surgical history Social history: smoking (40 years hx of cig smoking. She currently smokes 1PPD. No reported hx of alcohol or illicit drug use) Family history: other (Per her son, her sister was diagnosed with breast cancer in her 60's) Medications and Allergies Allergies Allergy/AdvReac Type Severity Reaction Status Date / Time Unable to Assess Allergy Unverified 05/22/19 20:18 Active Meds: Active Medications Acetaminophen (Tylenol) 650 mg PO Q4H PRN PRN Reason: Pain MILD(1-3)/Fever >100.5/ALARCON Dextrose (D50w (25gm) Syringe) 50 ml IV PRN PRN PRN Reason: Hypoglycemia Famotidine (Pepcid) 20 mg IV DAILY OSCAR Last Admin: 05/23/19 09:51 Dose: 20 mg Documented by: Fentanyl (Sublimaze) 50 mcg IV Q10MIN PRN PRN Reason: ANALGESIA Heparin Sodium (Porcine) (Heparin) 5,000 unit SUB-Q Q12HR OSCAR Last Admin: 05/23/19 09:51 Dose: 5,000 unit Documented by: Hydralazine HCl (Apresoline) 10 mg IV Q6HR PRN PRN Reason: Blood Pressure Last Admin: 05/23/19 01:08 Dose: 10 mg Documented by: Hydrophilic Ointment (Vaseline Lip Therapy) 1 applic TP Q2HR PRN PRN Reason: Dry Lips Fentanyl Citrate (Fentanyl Drip Premix) 2,000 mcg in 100 mls @ 1.62 mls/hr IV TITR OSCAR; Protocol Last Titration: 05/23/19 11:22 Dose: 3 mcg/kg/hr, 4.86 mls/hr Documented by: Midazolam HCl 100 mg/ Sodium (Chloride) 100 mls @ 2 mls/hr IV TITR OSCAR; Protocol Last Titration: 05/23/19 11:22 Dose: 5 mg/hr, 5 mls/hr Documented by: Sodium Chloride (Nacl 0.9% 1000 Ml) 1,000 mls @ 75 mls/hr IV DIRECT OSCAR Last Admin: 05/22/19 23:15 Dose: 75 mls/hr Documented by: Levofloxacin/Dextrose (Levaquin 500mg/100ml) 500 mg in 100 mls @ 66.667 mls/hr IV Q48H OSCAR; Protocol Insulin Human Lispro (Humalog) 0 unit SUB-Q Q6HR OSCAR; Protocol Last Admin: 05/23/19 09:14 Dose: Not Given Documented by: Methylprednisolone Sodium Succinate (Solu-Medrol) 125 mg IV Q8H [facility] Last Admin: 05/23/19 09:50 Dose: 125 mg Documented by: Midazolam HCl (Versed) 2 mg IV Q10MIN PRN PRN Reason: Sedation Multi-Ingred Cream/Lotion/Oil/Oint (Artificial Tears Ophth Oint) 1 applic OU Q4HR PRN PRN Reason: Dry Eye(s) Ondansetron HCl (Zofran) 4 mg IV Q8H PRN PRN Reason: Nausea And Vomiting Sodium Chloride (Sodium Chloride Flush Syringe 10 Ml) 10 ml IV BID [facility] Last Admin: 05/23/19 09:51 Dose: 10 ml Documented by: Sodium Chloride (Sodium Chloride Flush Syringe 10 Ml) 10 ml IV PRN PRN PRN Reason: LINE FLUSH Review of Systems ROS unobtainable: due to endotracheal tube Physical Examination Vital signs: Vital Signs Temp Pulse Resp BP Pulse Ox 97.9 F 102 H 22 208/107 100 05/22/19 20:18 05/22/19 20:18 05/22/19 20:18 05/22/19 20:18 05/22/19 20:18 General appearance: no acute distress, other (on vent intibated, critically ill thin) Eyes: non-icteric ENT: oropharynx moist Neck: supple Ascultation: Bilateral: diminished breath sounds Cardiovascular: regular rate and rhythm Gastrointestinal: normoactive bowel sounds, soft, non-tender Integumentary: normal Extremities: no cyanosis other (on vent) Results - Laboratory Findings CBC and BMP: 05/23/19 05:32 05/23/19 07:56 ABG POC ABG pH 7.170 (7.35-7.45) L 05/22/19 22:37 ABG pH 7.314 pH Units (7.350-7.450) L 05/23/19 09:00 POC ABG pCO2 62.0 (35-45) H 05/22/19 22:37 ABG pCO2 47.2 mm Hg 05/23/19 09:00 POC ABG pO2 101 (80-105) 05/22/19 22:37 ABG pO2 83.9 mm Hg (80.0-90.0) 05/23/19 09:00 POC ABG HCO3 22.6 (22-26 mml/L) 05/22/19 22:37 POC ABG Total CO2 24 (23-27mmol/L) 05/22/19 22:37 POC ABG O2 Sat 96 05/22/19 22:37 ABG O2 Saturation 96.2 % (95.0-99.0) 05/23/19 09:00 PT/INR, D-dimer PT 14.1 Sec. (12.2-14.9) 05/22/19 20:30 INR 1.12 (0.87-1.13) 05/22/19 20:30 Abnormal lab findings: Abnormal Labs 05/22/19 05/22/19 05/22/19 20:30 20:30 20:46 WBC 17.9 H RDW 17.4 H Plt Count 467 H Seg Neuts % (Manual) Lymphocytes % (Manual) Seg Neutrophils # Man 12.2 H Lymphocytes # (Manual) POC ABG pH ABG pH POC ABG pCO2 ABG Base Excess ABG Hemoglobin Oxyhemoglobin Sodium 135 L Chloride 96.0 L Carbon Dioxide 15 L BUN 28 H Creatinine 1.6 H Glucose 282 H Lactic Acid 10.40 H* Calcium AST 156 H ALT 76 H Alkaline Phosphatase 154 H Albumin 3.0 L 05/22/19 05/23/19 05/23/19 22:37 00:45 05:32 WBC 21.6 H RDW 16.8 H Plt Count Seg Neuts % (Manual) 95.0 H Lymphocytes % (Manual) 4.0 L Seg Neutrophils # Man 20.5 H Lymphocytes # (Manual) 0.9 L POC ABG pH 7.170 L ABG pH POC ABG pCO2 62.0 H ABG Base Excess ABG Hemoglobin Oxyhemoglobin Sodium Chloride Carbon Dioxide BUN Creatinine Glucose Lactic Acid 3.60 H* Calcium AST ALT Alkaline Phosphatase Albumin 05/23/19 05/23/19 05/23/19 05:32 07:56 07:56 WBC RDW Plt Count Seg Neuts % (Manual) Lymphocytes % (Manual) Seg Neutrophils # Man Lymphocytes # (Manual) POC ABG pH ABG pH POC ABG pCO2 ABG Base Excess ABG Hemoglobin Oxyhemoglobin Sodium Chloride Carbon Dioxide 21 L BUN 26 H Creatinine Glucose 127 H Lactic Acid 2.30 H* 2.20 H* Calcium 7.9 L AST 111 H ALT 80 H Alkaline Phosphatase 168 H Albumin 2.9 L 05/23/19 09:00 WBC RDW Plt Count Seg Neuts % (Manual) Lymphocytes % (Manual) Seg Neutrophils # Man Lymphocytes # (Manual) POC ABG pH ABG pH 7.314 L POC ABG pCO2 ABG Base Excess -2.8 L ABG Hemoglobin 10.4 L Oxyhemoglobin 94.8 L Sodium Chloride Carbon Dioxide BUN Creatinine Glucose Lactic Acid Calcium AST ALT Alkaline Phosphatase Albumin - Diagnostic Findings Chest x-ray: report reviewed, image reviewed (intial cxr neg cxr today lll infiltrate) Assessment and Plan - Patient Problems (1) COPD exacerbation Current Visit: Yes Status: Acute (2) Acute respiratory failure Current Visit: Yes Status: Acute Qualifiers: Respiratory failure complication: unspecified whether with hypoxia or hypercapnia Qualified Code(s): J96.00 - Acute respiratory failure, unspecified whether with hypoxia or hypercapnia (3) SIRS (systemic inflammatory response syndrome) Current Visit: Yes Status: Acute (4) Cancer with unknown primary site Current Visit: Yes Status: Chronic (5) Low BMI Current Visit: Yes Status: Acute
[2019-05-23] MEDS ORDERED: NACL 0.9% 1000 ML 1,000 ML ONE (13:13)
--- NOTE | 2019-05-23 15:17 | Progress Note ---
Assessment and Plan Assessment and plan: Patient is a 68 yo woman with a history of COPD who presented with respiratory arrest and was intubated by EMS in the field. SBPs in 200s. No prior visits here or any other history garnered. Severe sepsis probably 2/2 bronchiectasis -On IV antibiotic with levofloxacin -CTA chest showed chronic lung disease with bronchiectasis both lower lobes -Blood and sputum cultures pending Acute on chronic respiratory failure with hypercapnia -S/p intubation on MV -Pulmonology consulted -trying to wean off vent -on versed and fentanyl drip Acute severe COPD exacerbation -treat with IV steroids, -treat with nebs -treat with abx Hypertensive urgency -on PRN antihypertensive Hyperglycemia -hba1c level is 6.0 ERIKA -most likely ATN with vasomotor nephropathy component -On IVF, will monitor cr level Acute metabolic acidosis -Likely secondary to the renal impairment -We will monitor level Transaminitis -Probably secondary to the sepsis -We'll monitor levels Severe not moderate protein calorie malnutrition, bmi 14.0 -Nutrition consulted DVT prophylaxis with heparin and GI prophylaxis with famotidine CCT 35 minutes History Interval history: Patient was seen and examined. Follow-up on current diagnosis of Respiratory failure due to COPD. No overnight events reported to me. Patient intubated and sedated. Imaging, nursing note, chart, labs and old chart reviewed. Hospitalist Physical - Physical exam Narrative exam: Gen: cachetic, BMI 14.0, critically ill appearing intubated and sedated HEENT: NCAT, EOMI, PERRL, OP ett in place Neck: supple, no adenopathy, no thyromegaly, no JVD CVS/Heart: RRR, normal S1S2, pulses present bilaterally Chest/Lungs: diminished bs bilateral with rhonchi Symmetrical chest expansion, good air entry bilaterally GI/Abdomen: soft, NTND, good bowel sounds, no guarding or rebound /Bladder: no suprapubic tenderness, no CVA or paraspinal tenderness Extermity/Skin: no c/c/e, no obvious rash MSK: intubated and sedated Neuro: intubated and sedated Psych: intubated and sedated - Constitutional Vitals: Temp Pulse Resp BP Pulse Ox 98.7 F 73 24 144/78 100 05/23/19 11:31 05/23/19 14:00 05/23/19 14:00 05/23/19 14:00 05/23/19 14:00 General appearance: Present: no acute distress, other (Pt is intubated and sedated) Results - Labs CBC & Chem 7: 05/23/19 05:32 05/23/19 07:56 Labs: Laboratory Last Values WBC 21.6 K/mm3 (4.5-11.0) H 05/23/19 05:32 RBC 4.31 M/mm3 (3.65-5.03) 05/23/19 05:32 Hgb 12.2 gm/dl (10.1-14.3) 05/23/19 05:32 Hct 37.8 % (30.3-42.9) 05/23/19 05:32 MCV 88 fl (79-97) 05/23/19 05:32 MCH 28 pg (28-32) 05/23/19 05:32 MCHC 32 % (30-34) 05/23/19 05:32 RDW 16.8 % (13.2-15.2) H 05/23/19 05:32 Plt Count 420 K/mm3 (140-440) 05/23/19 05:32 Lymph # Digital Strategy Director 05/22/19 20:30 Add Manual Diff Complete 05/23/19 05:32 Total Counted 100 05/23/19 05:32 Seg Neutrophils % Digital Strategy Director 05/23/19 05:32 Seg Neuts % (Manual) 95.0 % (40.0-70.0) H 05/23/19 05:32 0 % 05/23/19 05:32 4.0 % (13.4-35.0) L 05/23/19 05:32 Reactive Lymphs % (Man) 0 % 05/23/19 05:32 1.0 % (0.0-7.3) 05/23/19 05:32 0 % (0.0-4.3) 05/23/19 05:32 0 % (0.0-1.8) 05/23/19 05:32 0 % 05/23/19 05:32 0 % 05/23/19 05:32 0 % 05/23/19 05:32 0 % 05/23/19 05:32 Nucleated RBC % Not Reportable 05/23/19 05:32 Seg Neutrophils # Man 20.5 K/mm3 (1.8-7.7) H 05/23/19 05:32 Band Neutrophils # 0.0 K/mm3 05/23/19 05:32 0.9 K/mm3 (1.2-5.4) L 05/23/19 05:32 Abs React Lymphs (Man) 0.0 K/mm3 05/23/19 05:32 0.2 K/mm3 (0.0-0.8) 05/23/19 05:32 0.0 K/mm3 (0.0-0.4) 05/23/19 05:32 0.0 K/mm3 (0.0-0.1) 05/23/19 05:32 0.0 K/mm3 05/23/19 05:32 0.0 K/mm3 05/23/19 05:32 0.0 K/mm3 05/23/19 05:32 Blast Cells # 0.0 K/mm3 05/23/19 05:32 WBC Morphology Not Reportable 05/23/19 05:32 Hypersegmented Neuts Not Reportable 05/23/19 05:32 Hyposegmented Neuts Not Reportable 05/23/19 05:32 Hypogranular Neuts Not Reportable 05/23/19 05:32 Not Reportable 05/23/19 05:32 Not Reportable 05/23/19 05:32 Not Reportable 05/23/19 05:32 Not Reportable 05/23/19 05:32 Not Reportable 05/23/19 05:32 Not Reportable 05/23/19 05:32 Consistent w auto 05/23/19 05:32 Not Reportable 05/23/19 05:32 Plt Clumps, EDTA Not Reportable 05/23/19 05:32 Not Reportable 05/23/19 05:32 Not Reportable 05/23/19 05:32 Not Reportable 05/23/19 05:32 Plt Morphology Comment Not Reportable 05/23/19 05:32 RBC Morphology Normal 05/23/19 05:32 Dimorphic RBCs Not Reportable 05/23/19 05:32 Not Reportable 05/23/19 05:32 Not Reportable 05/23/19 05:32 Not Reportable 05/23/19 05:32 Not Reportable 05/23/19 05:32 Not Reportable 05/23/19 05:32 Not Reportable 05/23/19 05:32 Not Reportable 05/23/19 05:32 Not Reportable 05/23/19 05:32 Not Reportable 05/23/19 05:32 Not Reportable 05/23/19 05:32 Not Reportable 05/23/19 05:32 Not Reportable 05/23/19 05:32 Not Reportable 05/23/19 05:32 Not Reportable 05/23/19 05:32 Not Reportable 05/23/19 05:32 Not Reportable 05/23/19 05:32 Not Reportable 05/23/19 05:32 Not Reportable 05/23/19 05:32 Not Reportable 05/23/19 05:32 Acanthocytes (Spur) Not Reportable 05/23/19 05:32 Rouleaux Not Reportable 05/23/19 05:32 Not Reportable 05/23/19 05:32 Not Reportable 05/23/19 05:32 Not Reportable 05/23/19 05:32 Not Reportable 05/23/19 05:32 Hem Pathologist Commnt No 05/23/19 05:32 PT 14.1 Sec. (12.2-14.9) 05/22/19 20:30 INR 1.12 (0.87-1.13) 05/22/19 20:30 APTT 24.8 Sec. (24.2-36.6) 05/22/19 20:30 POC ABG pH 7.170 (7.35-7.45) L 05/22/19 22:37 ABG pH 7.314 pH Units (7.350-7.450) L 05/23/19 09:00 POC ABG pCO2 62.0 (35-45) H 05/22/19 22:37 ABG pCO2 47.2 mm Hg 05/23/19 09:00 POC ABG pO2 101 (80-105) 05/22/19 22:37 ABG pO2 83.9 mm Hg (80.0-90.0) 05/23/19 09:00 POC ABG HCO3 22.6 (22-26 mml/L) 05/22/19 22:37 ABG HCO3 23.4 mmol/L (20.0-26.0) 05/23/19 09:00 POC ABG Total CO2 24 (23-27mmol/L) 05/22/19 22:37 POC ABG O2 Sat 96 05/22/19 22:37 ABG O2 Saturation 96.2 % (95.0-99.0) 05/23/19 09:00 ABG O2 Content 14.0 (0.0-44) 05/23/19 09:00 POC ABG Base Excess -6 ((-2) - (+3)mmol/L) 05/22/19 22:37 ABG Base Excess -2.8 mmol/L (-2.0-3.0) L 05/23/19 09:00 ABG Hemoglobin 10.4 gm/dl (12.0-16.0) L 05/23/19 09:00 ABG Carboxyhemoglobin 1.0 % (0.0-5.0) 05/23/19 09:00 ABG Methemoglobin 0.4 % (0.0-1.5) 05/23/19 09:00 94.8 % (95.0-99.0) L 05/23/19 09:00 40 % 05/23/19 09:00 Sodium 139 mmol/L (137-145) 05/23/19 07:56 Potassium 4.7 mmol/L (3.6-5.0) 05/23/19 07:56 Chloride 104.0 mmol/L (98-107) 05/23/19 07:56 Carbon Dioxide 21 mmol/L (22-30) L 05/23/19 07:56 19 mmol/L 05/23/19 07:56 BUN 26 mg/dL (7-17) H 05/23/19 07:56 1.2 mg/dL (0.7-1.2) 05/23/19 07:56 Estimated GFR 45 ml/min 05/23/19 07:56 22 % 05/23/19 07:56 Glucose 127 mg/dL (65-100) H 05/23/19 07:56 POC Glucose 71 (70-105) 05/23/19 12:59 6.0 % (4-6) 05/23/19 05:32 Lactic Acid 0.90 mmol/L (0.7-2.0) 05/23/19 14:27 Calcium 7.9 mg/dL (8.4-10.2) L 05/23/19 07:56 Magnesium 2.10 mg/dL (1.7-2.3) 05/22/19 20:30 < 0.20 mg/dL (0.1-1.2) 05/23/19 07:56 AST 111 units/L (5-40) H 05/23/19 07:56 ALT 80 units/L (7-56) H 05/23/19 07:56 168 units/L (35-129) H 05/23/19 07:56 110 units/L (30-135) 05/22/19 20:30 < 0.010 ng/mL (0.00-0.029) 05/22/19 20:30 6.7 g/dL (6.3-8.2) 05/23/19 07:56 2.9 g/dL (3.9-5) L 05/23/19 07:56 0.8 % 05/23/19 07:56 Yellow (Yellow) 05/22/19 21:53 Clear (Clear) 05/22/19 21:53 6.0 (5.0-7.0) 05/22/19 21:53 Ur Specific [place] 1.016 (1.003-1.030) 05/22/19 21:53 30 mg/dl mg/dL (Negative) 05/22/19 21:53 50 mg/dL (Negative) 05/22/19 21:53 Neg mg/dL (Negative) 05/22/19 21:53 Sm (Negative) 05/22/19 21:53 Neg (Negative) 05/22/19 21:53 Neg (Negative) 05/22/19 21:53 < 2.0 mg/dL (<2.0) 05/22/19 21:53 Ur Leukocyte Esterase Neg (Negative) 05/22/19 21:53 5.0 /HPF (0.0-6.0) 05/22/19 21:53 2.0 /HPF (0.0-6.0) 05/22/19 21:53 U Epithel Cells (Auto) < 1.0 /HPF (0-13.0) 05/22/19 21:53 Few /HPF 05/22/19 21:53 Active Medications - Current Medications Current Medications: Generic Name Dose Route Start Last Admin Trade Name Freq PRN Reason Stop Dose Admin Acetaminophen 650 mg 05/22/19 22:50 Tylenol PO Q4H PRN Pain MILD(1-3)/Fever >100.5/ALARCON Dextrose 50 ml 05/23/19 01:08 D50w (25gm) Syringe IV PRN PRN Hypoglycemia Famotidine 20 mg 05/23/19 10:00 05/23/19 09:51 Pepcid IV 20 mg DAILY OSCAR Administration Fentanyl 50 mcg 05/22/19 20:25 Sublimaze IV Q10MIN PRN ANALGESIA Heparin Sodium (Porcine) 5,000 unit 05/23/19 10:00 05/23/19 09:51 Heparin SUB-Q 5,000 unit Q12HR OSCAR Administration Hydralazine HCl 10 mg 05/23/19 00:47 05/23/19 01:08 Apresoline IV 10 mg Q6HR PRN Administration Blood Pressure Hydrophilic Ointment 1 applic 05/22/19 20:25 Vaseline Lip Therapy TP Q2HR PRN Dry Lips Fentanyl Citrate 2,000 mcg in 100 mls @ 1.62 mls/hr 05/22/19 21:00 05/23/19 11:22 Fentanyl Drip Premix IV 3 mcg/kg/hr TITR OSCAR 4.86 mls/hr Titration Protocol 1 MCG/KG/HR Midazolam HCl 100 mg/ Sodium 100 mls @ 2 mls/hr 05/22/19 21:00 05/23/19 11:22 Chloride IV 5 mg/hr TITR OSCAR 5 mls/hr Titration Protocol 2 MG/HR Sodium Chloride 1,000 mls @ 75 mls/hr 05/22/19 23:00 05/22/19 23:15 Nacl 0.9% 1000 Ml IV 75 mls/hr DIRECT OSCAR Administration Levofloxacin/Dextrose 500 mg in 100 mls @ 66.667 mls/hr 05/23/19 20:00 Levaquin 500mg/100ml IV Q48H [facility] Protocol Insulin Human Lispro 0 unit 05/23/19 06:00 05/23/19 12:54 Humalog SUB-Q Not Given Q6HR [facility] Protocol Methylprednisolone Sodium Succinate 125 mg 05/23/19 01:00 05/23/19 09:50 Solu-Medrol IV 125 mg Q8H OSCAR Administration Midazolam HCl 2 mg 05/22/19 20:25 Versed IV Q10MIN PRN Sedation Multi-Ingred Cream/Lotion/Oil/Oint 1 applic 05/22/19 20:25 Artificial Tears Ophth Oint OU Q4HR PRN Dry Eye(s) Ondansetron HCl 4 mg 05/22/19 22:50 Zofran IV Q8H PRN Nausea And Vomiting Sodium Chloride 10 ml 05/23/19 10:00 05/23/19 09:51 Sodium Chloride Flush Syringe 10 Ml IV 10 ml BID OSCAR Administration Sodium Chloride 10 ml 05/22/19 22:50 Sodium Chloride Flush Syringe 10 Ml IV PRN PRN LINE FLUSH
[2019-05-23] MEDS ORDERED: D50W (25GM) Syringe IV ONE ×2 (15:48)
[2019-05-23] MEDS: fentaNYL DRIP Premix 2,000 MCG/100 ML BAG IV SCH (18:27)
[2019-05-23] MEDS: MIDAZOLAM 100 MG in NACL 0.9% 80 ML IV SCH (18:28)
[2019-05-23] MEDS ORDERED: LEVAQUIN 500MG/100ML 500 MG/100 ML BAG IV ONE (20:37)
[2019-05-23] MEDS: LEVAQUIN 500MG/100ML 500 MG/100 ML BAG IV SCH (20:41)
[2019-05-24] MEDS: HumaLOG SUB-Q SCH ×4 (00:20→19:33)
[2019-05-24] MEDS: BROVANA NEBU IH SCH ×3 (01:04→20:23)
[2019-05-24] MEDS: PULMICORT IH SCH ×3 (01:05→20:23)
[2019-05-24] MEDS ORDERED: LACTATED RINGERS 1,000 ML ONE (02:25)
[2019-05-24] MEDS: LACTATED RINGERS 1,000 ML IV SCH (02:28)
--- NOTE | 2019-05-24 02:30 | XRay Report ---
CHEST 1 VIEW 2:04 AM INDICATION / CLINICAL INFORMATION: Follow up respiratory failure. COMPARISON: Yesterday. FINDINGS: SUPPORT DEVICES: The endotracheal tube is not well seen. The position of the nasogastric tube has not changed. HEART / MEDIASTINUM: Unchanged. LUNGS / PLEURA: Pleuroparenchymal opacity in the left lung base has improved. Emphysema is again note d. No pneumothorax. ADDITIONAL FINDINGS: No significant additional findings. IMPRESSION: Significant improvement in left basilar pleuroparenchymal opacity. Signer Name: Carlos Alberto Mantilla MD Signed: 05/24/2019 2:26 AM Workstation Name: [id number]
[2019-05-24 04:03] LABS: Basophils % (Auto) 0.1 % (0.0-1.8); Hematocrit 29.7 % (30.3-42.9); Hemoglobin 9.5 gm/dl (10.1-14.3); Lymphocytes % (Auto) 6.5 % (13.4-35.0); Mean Corpuscular HGB Conc 32 % (30-34); Mean Corpuscular Volume 88 fl (79-97); Monocytes # (Auto) 0.5 K/mm3 (0.0-0.8); Monocytes % (Auto) 3.4 % (0.0-7.3); Platelet Count 353 K/mm3 (140-440); Red Blood Count 3.38 M/mm3 (3.65-5.03)
[2019-05-24 04:27] LABS: Calcium 7.9 mg/dL (8.4-10.2)
[2019-05-24 04:36] LABS: ABG HCO3 22.5 mmol/L (20.0-26.0); ABG Methemoglobin 0.4 % (0.0-1.5); ABG Oxygen Saturation 99.1 % (95.0-99.0); ABG PH 7.347 pH Units (7.350-7.450); ABG PO2 178.7 mm Hg (80.0-90.0)
[2019-05-24] MEDS: SOLU-Medrol IV SCH ×3 (06:25→21:12)
--- NOTE | 2019-05-24 07:19 | Progress Note ---
Assessment and Plan Assessment and plan: Patient is a 68 yo woman with a history of COPD who presented with respiratory arrest and was intubated by EMS in the field. SBPs in 200s. No prior visits here or any other history garnered. I called sonHernan at [phone] and granddaughter Lissette at [phone] and no answer. Severe sepsis probably 2/2 bronchiectasis -On IV antibiotic with levofloxacin -CTA chest showed chronic lung disease with bronchiectasis both lower lobes -Blood and sputum cultures pending Acute on chronic respiratory failure with hypercapnia -S/p intubation on MV -Pulmonology consulted -trying to wean off vent -on versed and fentanyl drip Acute severe COPD exacerbation -treat with IV steroids, -treat with nebs -treat with abx Hypertensive urgency -on PRN antihypertensive Hyperglycemia -hba1c level is 6.0 ERIKA -most likely ATN with vasomotor nephropathy component -On IVF, will monitor cr level Acute metabolic acidosis -Likely secondary to the renal impairment -We will monitor level Transaminitis -Probably secondary to the sepsis -We'll monitor levels Severe not moderate protein calorie malnutrition, bmi 14.0 -Nutrition consulted DVT prophylaxis with heparin and GI prophylaxis with famotidine CCT 32 minutes History Interval history: Patient was seen and examined. Follow-up on current diagnosis of Respiratory failure due to COPD. No overnight events reported to me. Patient intubated and sedated. Imaging, nursing note, chart, labs and old chart reviewed. Hospitalist Physical - Physical exam Narrative exam: Gen: cachetic, BMI 14.0, critically ill appearing intubated and sedated HEENT: NCAT, EOMI, PERRL, OP ett in place Neck: supple, no adenopathy, no thyromegaly, no JVD CVS/Heart: RRR, normal S1S2, pulses present bilaterally Chest/Lungs: diminished bs bilateral with rhonchi Symmetrical chest expansion, good air entry bilaterally GI/Abdomen: soft, NTND, good bowel sounds, no guarding or rebound /Bladder: no suprapubic tenderness, no CVA or paraspinal tenderness Extermity/Skin: no c/c/e, no obvious rash MSK: intubated and sedated Neuro: intubated and sedated Psych: intubated and sedated - Constitutional Vitals: Temp Pulse Resp BP Pulse Ox 98.3 F 65 24 136/75 100 05/23/19 19:20 05/24/19 05:00 05/24/19 05:00 05/24/19 05:00 05/24/19 05:00 General appearance: Present: no acute distress, other (Pt is intubated and sedated) Results - Labs CBC & Chem 7: 05/24/19 03:55 05/24/19 03:55 Labs: Laboratory Last Values WBC 15.4 K/mm3 (4.5-11.0) H 05/24/19 03:55 RBC 3.38 M/mm3 (3.65-5.03) L 05/24/19 03:55 Hgb 9.5 gm/dl (10.1-14.3) L 05/24/19 03:55 Hct 29.7 % (30.3-42.9) L D 05/24/19 03:55 MCV 88 fl (79-97) 05/24/19 03:55 MCH 28 pg (28-32) 05/24/19 03:55 MCHC 32 % (30-34) 05/24/19 03:55 RDW 17.0 % (13.2-15.2) H 05/24/19 03:55 Plt Count 353 K/mm3 (140-440) 05/24/19 03:55 Lymph % (Auto) 6.5 % (13.4-35.0) L 05/24/19 03:55 [place] % (Auto) 3.4 % (0.0-7.3) 05/24/19 03:55 Eos % (Auto) 0.0 % (0.0-4.3) 05/24/19 03:55 Baso % (Auto) 0.1 % (0.0-1.8) 05/24/19 03:55 Lymph # 1.0 K/mm3 (1.2-5.4) L 05/24/19 03:55 [place] # 0.5 K/mm3 (0.0-0.8) 05/24/19 03:55 Eos # 0.0 K/mm3 (0.0-0.4) 05/24/19 03:55 Baso # 0.0 K/mm3 (0.0-0.1) 05/24/19 03:55 Add Manual Diff Complete 05/23/19 05:32 Total Counted 100 05/23/19 05:32 Seg Neutrophils % 90.0 % (40.0-70.0) H 05/24/19 03:55 Seg Neuts % (Manual) 95.0 % (40.0-70.0) H 05/23/19 05:32 0 % 05/23/19 05:32 4.0 % (13.4-35.0) L 05/23/19 05:32 Reactive Lymphs % (Man) 0 % 05/23/19 05:32 1.0 % (0.0-7.3) 05/23/19 05:32 0 % (0.0-4.3) 05/23/19 05:32 0 % (0.0-1.8) 05/23/19 05:32 0 % 05/23/19 05:32 0 % 05/23/19 05:32 0 % 05/23/19 05:32 0 % 05/23/19 05:32 Nucleated RBC % Not Reportable 05/23/19 05:32 Seg Neutrophils # 13.9 K/mm3 (1.8-7.7) H 05/24/19 03:55 Seg Neutrophils # Man 20.5 K/mm3 (1.8-7.7) H 05/23/19 05:32 Band Neutrophils # 0.0 K/mm3 05/23/19 05:32 0.9 K/mm3 (1.2-5.4) L 05/23/19 05:32 Abs React Lymphs (Man) 0.0 K/mm3 05/23/19 05:32 0.2 K/mm3 (0.0-0.8) 05/23/19 05:32 0.0 K/mm3 (0.0-0.4) 05/23/19 05:32 0.0 K/mm3 (0.0-0.1) 05/23/19 05:32 0.0 K/mm3 05/23/19 05:32 0.0 K/mm3 05/23/19 05:32 0.0 K/mm3 05/23/19 05:32 Blast Cells # 0.0 K/mm3 05/23/19 05:32 WBC Morphology Not Reportable 05/23/19 05:32 Hypersegmented Neuts Not Reportable 05/23/19 05:32 Hyposegmented Neuts Not Reportable 05/23/19 05:32 Hypogranular Neuts Not Reportable 05/23/19 05:32 Not Reportable 05/23/19 05:32 Not Reportable 05/23/19 05:32 Not Reportable 05/23/19 05:32 Not Reportable 05/23/19 05:32 Not Reportable 05/23/19 05:32 Not Reportable 05/23/19 05:32 Consistent w auto 05/23/19 05:32 Not Reportable 05/23/19 05:32 Plt Clumps, EDTA Not Reportable 05/23/19 05:32 Not Reportable 05/23/19 05:32 Not Reportable 05/23/19 05:32 Not Reportable 05/23/19 05:32 Plt Morphology Comment Not Reportable 05/23/19 05:32 RBC Morphology Normal 05/23/19 05:32 Dimorphic RBCs Not Reportable 05/23/19 05:32 Not Reportable 05/23/19 05:32 Not Reportable 05/23/19 05:32 Not Reportable 05/23/19 05:32 Not Reportable 05/23/19 05:32 Not Reportable 05/23/19 05:32 Not Reportable 05/23/19 05:32 Not Reportable 05/23/19 05:32 Not Reportable 05/23/19 05:32 Not Reportable 05/23/19 05:32 Not Reportable 05/23/19 05:32 Not Reportable 05/23/19 05:32 Not Reportable 05/23/19 05:32 Not Reportable 05/23/19 05:32 Not Reportable 05/23/19 05:32 Not Reportable 05/23/19 05:32 Not Reportable 05/23/19 05:32 Not Reportable 05/23/19 05:32 Not Reportable 05/23/19 05:32 Not Reportable 05/23/19 05:32 Acanthocytes (Spur) Not Reportable 05/23/19 05:32 Rouleaux Not Reportable 05/23/19 05:32 Not Reportable 05/23/19 05:32 Not Reportable 05/23/19 05:32 Not Reportable 05/23/19 05:32 Not Reportable 05/23/19 05:32 Hem Pathologist Commnt No 05/23/19 05:32 PT 14.1 Sec. (12.2-14.9) 05/22/19 20:30 INR 1.12 (0.87-1.13) 05/22/19 20:30 APTT 24.8 Sec. (24.2-36.6) 05/22/19 20:30 POC ABG pH 7.170 (7.35-7.45) L 05/22/19 22:37 ABG pH 7.347 pH Units (7.350-7.450) L 05/24/19 Unknown POC ABG pCO2 62.0 (35-45) H 05/22/19 22:37 ABG pCO2 42.0 mm Hg 05/24/19 Unknown POC ABG pO2 101 (80-105) 05/22/19 22:37 ABG pO2 178.7 mm Hg (80.0-90.0) H 05/24/19 Unknown POC ABG HCO3 22.6 (22-26 mml/L) 05/22/19 22:37 ABG HCO3 22.5 mmol/L (20.0-26.0) 05/24/19 Unknown POC ABG Total CO2 24 (23-27mmol/L) 05/22/19 22:37 POC ABG O2 Sat 96 05/22/19 22:37 ABG O2 Saturation 99.1 % (95.0-99.0) H 05/24/19 Unknown ABG O2 Content 13.4 (0.0-44) 05/24/19 Unknown POC ABG Base Excess -6 ((-2) - (+3)mmol/L) 05/22/19 22:37 ABG Base Excess -3.0 mmol/L (-2.0-3.0) L 05/24/19 Unknown ABG Hemoglobin 9.5 gm/dl (12.0-16.0) L 05/24/19 Unknown ABG Carboxyhemoglobin 0.9 % (0.0-5.0) 05/24/19 Unknown ABG Methemoglobin 0.4 % (0.0-1.5) 05/24/19 Unknown 97.8 % (95.0-99.0) 05/24/19 Unknown 40 % 05/24/19 Unknown Sodium 142 mmol/L (137-145) 05/24/19 03:55 Potassium 4.8 mmol/L (3.6-5.0) 05/24/19 03:55 Chloride 108.7 mmol/L (98-107) H 05/24/19 03:55 Carbon Dioxide 22 mmol/L (22-30) 05/24/19 03:55 16 mmol/L 05/24/19 03:55 BUN 31 mg/dL (7-17) H 05/24/19 03:55 1.3 mg/dL (0.7-1.2) H 05/24/19 03:55 Estimated GFR 41 ml/min 05/24/19 03:55 24 % 05/24/19 03:55 Glucose 112 mg/dL (65-100) H 05/24/19 03:55 POC Glucose 116 (70-105) H 05/24/19 05:37 6.0 % (4-6) 05/23/19 05:32 Lactic Acid 0.90 mmol/L (0.7-2.0) 05/23/19 14:27 Calcium 7.9 mg/dL (8.4-10.2) L 05/24/19 03:55 Magnesium 2.10 mg/dL (1.7-2.3) 05/22/19 20:30 < 0.20 mg/dL (0.1-1.2) 05/23/19 07:56 AST 111 units/L (5-40) H 05/23/19 07:56 ALT 80 units/L (7-56) H 05/23/19 07:56 168 units/L (35-129) H 05/23/19 07:56 110 units/L (30-135) 05/22/19 20:30 < 0.010 ng/mL (0.00-0.029) 05/22/19 20:30 6.7 g/dL (6.3-8.2) 05/23/19 07:56 2.9 g/dL (3.9-5) L 05/23/19 07:56 0.8 % 05/23/19 07:56 Yellow (Yellow) 05/22/19 21:53 Clear (Clear) 05/22/19 21:53 6.0 (5.0-7.0) 05/22/19 21:53 Ur Specific [place] 1.016 (1.003-1.030) 05/22/19 21:53 30 mg/dl mg/dL (Negative) 05/22/19 21:53 50 mg/dL (Negative) 05/22/19 21:53 Neg mg/dL (Negative) 05/22/19 21:53 Sm (Negative) 05/22/19 21:53 Neg (Negative) 05/22/19 21:53 Neg (Negative) 05/22/19 21:53 < 2.0 mg/dL (<2.0) 05/22/19 21:53 Ur Leukocyte Esterase Neg (Negative) 05/22/19 21:53 5.0 /HPF (0.0-6.0) 05/22/19 21:53 2.0 /HPF (0.0-6.0) 05/22/19 21:53 U Epithel Cells (Auto) < 1.0 /HPF (0-13.0) 05/22/19 21:53 Few /HPF 05/22/19 21:53 Active Medications - Current Medications Current Medications: Generic Name Dose Route Start Last Admin Trade Name Freq PRN Reason Stop Dose Admin Acetaminophen 650 mg 05/22/19 22:50 Tylenol PO Q4H PRN Pain MILD(1-3)/Fever >100.5/ALARCON Arformoterol Tartrate 15 mcg 05/23/19 23:45 05/24/19 01:04 Brovana Nebu IH Not Given Q12HRT OSCAR Budesonide 0.25 mg 05/23/19 23:45 05/24/19 01:05 Pulmicort IH Not Given Q12HRT OSCAR Dextrose 50 ml 05/23/19 01:08 D50w (25gm) Syringe IV PRN PRN Hypoglycemia Famotidine 20 mg 05/23/19 10:00 05/23/19 09:51 Pepcid IV 20 mg DAILY OSCAR Administration Fentanyl 50 mcg 05/22/19 20:25 Sublimaze IV Q10MIN PRN ANALGESIA Hydralazine HCl 10 mg 05/23/19 00:47 05/23/19 01:08 Apresoline IV 10 mg Q6HR PRN Administration Blood Pressure Hydrophilic Ointment 1 applic 05/22/19 20:25 Vaseline Lip Therapy TP Q2HR PRN Dry Lips Fentanyl Citrate 2,000 mcg in 100 mls @ 1.62 mls/hr 05/22/19 21:00 05/23/19 18:27 Fentanyl Drip Premix IV 3 mcg/kg/hr TITR OSCAR 4.86 mls/hr Administration Protocol 1 MCG/KG/HR Midazolam HCl 100 mg/ Sodium 100 mls @ 2 mls/hr 05/22/19 21:00 05/23/19 18:28 Chloride IV 5 mg/hr TITR OSCAR 5 mls/hr Administration Protocol 2 MG/HR Sodium Chloride 1,000 mls @ 75 mls/hr 05/22/19 23:00 05/22/19 23:15 Nacl 0.9% 1000 Ml IV 75 mls/hr DIRECT OSCAR Administration Levofloxacin/Dextrose 500 mg in 100 mls @ 66.667 mls/hr 05/23/19 20:00 05/23/19 20:41 Levaquin 500mg/100ml IV 66.667 mls/hr Q48H [facility] Administration Protocol Lactated Ringer's 1,000 mls @ 50 mls/hr 05/24/19 02:00 05/24/19 02:28 Lactated Ringers IV 50 mls/hr DIRECT [facility] Administration Insulin Human Lispro 0 unit 05/23/19 06:00 05/24/19 05:42 Humalog SUB-Q Not Given Q6HR [facility] Protocol Methylprednisolone Sodium Succinate 60 mg 05/24/19 06:00 05/24/19 06:25 Solu-Medrol IV 60 mg Q8HR [facility] Administration Midazolam HCl 2 mg 05/22/19 20:25 Versed IV Q10MIN PRN Sedation Multi-Ingred Cream/Lotion/Oil/Oint 1 applic 05/22/19 20:25 Artificial Tears Ophth Oint OU Q4HR PRN Dry Eye(s) Ondansetron HCl 4 mg 05/22/19 22:50 Zofran IV Q8H PRN Nausea And Vomiting Sodium Chloride 10 ml 05/23/19 10:00 05/23/19 22:19 Sodium Chloride Flush Syringe 10 Ml IV 10 ml BID [facility] Administration Sodium Chloride 10 ml 05/22/19 22:50 Sodium Chloride Flush Syringe 10 Ml IV PRN PRN LINE FLUSH
--- NOTE | 2019-05-24 12:21 | Progress Note ---
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 DVT and GI prophylaxis Total critical care time 31 minute Subjective Date of service: 05/24/19 Interval history: Pt awake in spite of being mildly sedated. Remain intubated on mechanical ventilator. Still have copious secretions. Objective Vital Signs - 12hr 05/24/19 05/24/19 05/24/19 01:00 02:00 03:00 Pulse Rate 68 66 78 Pulse Rate [ Anterior] Pulse Rate [ Apical] Respiratory 24 24 24 Rate Respiratory Rate [Anterior] Blood Pressure 123/68 123/71 131/81 O2 Sat by Pulse 100 100 97 Oximetry 05/24/19 05/24/19 05/24/19 04:00 05:00 06:00 Pulse Rate 85 65 68 Pulse Rate [ Anterior] Pulse Rate [ Apical] Respiratory 25 H 24 18 Rate Respiratory Rate [Anterior] Blood Pressure 144/77 136/75 137/76 O2 Sat by Pulse 100 100 98 Oximetry 05/24/19 05/24/19 05/24/19 07:00 07:16 08:00 Pulse Rate 69 65 78 Pulse Rate [ Anterior] Pulse Rate [ Apical] Respiratory 24 18 Rate Respiratory Rate [Anterior] Blood Pressure 145/76 141/76 154/83 O2 Sat by Pulse 98 100 99 Oximetry 05/24/19 05/24/19 05/24/19 08:30 08:47 08:51 Pulse Rate 64 61 Pulse Rate [ 82 Anterior] Pulse Rate [ Apical] Respiratory 24 24 Rate Respiratory 18 Rate [Anterior] Blood Pressure 149/82 153/83 O2 Sat by Pulse 98 98 Oximetry 05/24/19 05/24/19 05/24/19 09:00 09:11 10:00 Pulse Rate 62 85 79 Pulse Rate [ Anterior] Pulse Rate [ Apical] Respiratory 24 19 Rate Respiratory Rate [Anterior] Blood Pressure 162/85 162/85 O2 Sat by Pulse 99 100 Oximetry 05/24/19 05/24/19 05/24/19 10:19 10:57 11:32 Pulse Rate 83 101 H Pulse Rate [ Anterior] Pulse Rate [ 84 Apical] Respiratory 19 Rate Respiratory Rate [Anterior] Blood Pressure 152/81 165/88 O2 Sat by Pulse 94 98 94 Oximetry Constitutional: no acute distress, other (cachectic) Eyes: non-icteric ENT: oropharynx moist Neck: supple Ascultation: Bilateral: diminished breath sounds, rhonchi Cardiovascular: regular rate and rhythm Gastrointestinal: normoactive bowel sounds, soft, non-tender Integumentary: normal Extremities: no cyanosis Neurologic: other (on vent) CBC and BMP: 05/24/19 03:55 05/24/19 03:55 ABG, PT/INR, D-dimer: ABG POC ABG pH 7.200 (7.35-7.45) L 05/23/19 01:27 ABG pH 7.347 pH Units (7.350-7.450) L 05/24/19 Unknown POC ABG pCO2 58.7 (35-45) H 05/23/19 01:27 ABG pCO2 42.0 mm Hg 05/24/19 Unknown POC ABG pO2 105 (80-105) 05/23/19 01:27 ABG pO2 178.7 mm Hg (80.0-90.0) H 05/24/19 Unknown POC ABG HCO3 22.9 (22-26 mml/L) 05/23/19 01:27 POC ABG Total CO2 25 (23-27mmol/L) 05/23/19 01:27 POC ABG O2 Sat 96 05/23/19 01:27 ABG O2 Saturation 99.1 % (95.0-99.0) H 05/24/19 Unknown PT/INR, D-dimer PT 14.1 Sec. (12.2-14.9) 05/22/19 20:30 INR 1.12 (0.87-1.13) 05/22/19 20:30 Abnormal lab findings: Abnormal Labs 05/22/19 05/22/19 05/22/19 20:30 20:30 20:46 WBC 17.9 H RBC Hgb Hct RDW 17.4 H Plt Count 467 H Lymph % (Auto) Lymph # Seg Neutrophils % Seg Neuts % (Manual) Lymphocytes % (Manual) Seg Neutrophils # Seg Neutrophils # Man 12.2 H Lymphocytes # (Manual) POC ABG pH ABG pH POC ABG pCO2 ABG pO2 ABG O2 Saturation ABG Base Excess ABG Hemoglobin Oxyhemoglobin Sodium 135 L Chloride 96.0 L Carbon Dioxide 15 L BUN 28 H Creatinine 1.6 H Glucose 282 H POC Glucose Lactic Acid 10.40 H* Calcium AST 156 H ALT 76 H Alkaline Phosphatase 154 H Albumin 3.0 L 05/22/19 05/23/19 05/23/19 22:37 00:45 01:27 WBC RBC Hgb Hct RDW Plt Count Lymph % (Auto) Lymph # Seg Neutrophils % Seg Neuts % (Manual) Lymphocytes % (Manual) Seg Neutrophils # Seg Neutrophils # Man Lymphocytes # (Manual) POC ABG pH 7.170 L 7.200 L ABG pH POC ABG pCO2 62.0 H 58.7 H ABG pO2 ABG O2 Saturation ABG Base Excess ABG Hemoglobin Oxyhemoglobin Sodium Chloride Carbon Dioxide BUN Creatinine Glucose POC Glucose Lactic Acid 3.60 H* Calcium AST ALT Alkaline Phosphatase Albumin 05/23/19 05/23/19 05/23/19 05:32 05:32 07:56 WBC 21.6 H RBC Hgb Hct RDW 16.8 H Plt Count Lymph % (Auto) Lymph # Seg Neutrophils % Seg Neuts % (Manual) 95.0 H Lymphocytes % (Manual) 4.0 L Seg Neutrophils # Seg Neutrophils # Man 20.5 H Lymphocytes # (Manual) 0.9 L POC ABG pH ABG pH POC ABG pCO2 ABG pO2 ABG O2 Saturation ABG Base Excess ABG Hemoglobin Oxyhemoglobin Sodium Chloride Carbon Dioxide BUN Creatinine Glucose POC Glucose Lactic Acid 2.30 H* 2.20 H* Calcium AST ALT Alkaline Phosphatase Albumin 05/23/19 05/23/19 05/23/19 07:56 09:00 15:47 WBC RBC Hgb Hct RDW Plt Count Lymph % (Auto) Lymph # Seg Neutrophils % Seg Neuts % (Manual) Lymphocytes % (Manual) Seg Neutrophils # Seg Neutrophils # Man Lymphocytes # (Manual) POC ABG pH ABG pH 7.314 L POC ABG pCO2 ABG pO2 ABG O2 Saturation ABG Base Excess -2.8 L ABG Hemoglobin 10.4 L Oxyhemoglobin 94.8 L Sodium Chloride Carbon Dioxide 21 L BUN 26 H Creatinine Glucose 127 H POC Glucose 58 L Lactic Acid Calcium 7.9 L AST 111 H ALT 80 H Alkaline Phosphatase 168 H Albumin 2.9 L 05/23/19 05/23/19 05/23/19 16:32 18:41 20:13 WBC RBC Hgb Hct RDW Plt Count Lymph % (Auto) Lymph # Seg Neutrophils % Seg Neuts % (Manual) Lymphocytes % (Manual) Seg Neutrophils # Seg Neutrophils # Man Lymphocytes # (Manual) POC ABG pH ABG pH POC ABG pCO2 ABG pO2 ABG O2 Saturation ABG Base Excess ABG Hemoglobin Oxyhemoglobin Sodium Chloride Carbon Dioxide BUN Creatinine Glucose POC Glucose 237 H 170 H 131 H Lactic Acid Calcium AST ALT Alkaline Phosphatase Albumin 05/24/19 05/24/19 05/24/19 00:15 03:55 03:55 WBC 15.4 H RBC 3.38 L Hgb 9.5 L Hct 29.7 L D RDW 17.0 H Plt Count Lymph % (Auto) 6.5 L Lymph # 1.0 L Seg Neutrophils % 90.0 H Seg Neuts % (Manual) Lymphocytes % (Manual) Seg Neutrophils # 13.9 H Seg Neutrophils # Man Lymphocytes # (Manual) POC ABG pH ABG pH POC ABG pCO2 ABG pO2 ABG O2 Saturation ABG Base Excess ABG Hemoglobin Oxyhemoglobin Sodium Chloride 108.7 H Carbon Dioxide BUN 31 H Creatinine 1.3 H Glucose 112 H POC Glucose 109 H Lactic Acid Calcium 7.9 L AST ALT Alkaline Phosphatase Albumin 05/24/19 05/24/19 05/24/19 05:37 08:43 Unknown WBC RBC Hgb Hct RDW Plt Count Lymph % (Auto) Lymph # Seg Neutrophils % Seg Neuts % (Manual) Lymphocytes % (Manual) Seg Neutrophils # Seg Neutrophils # Man Lymphocytes # (Manual) POC ABG pH ABG pH 7.347 L POC ABG pCO2 ABG pO2 178.7 H ABG O2 Saturation 99.1 H ABG Base Excess -3.0 L ABG Hemoglobin 9.5 L Oxyhemoglobin Sodium Chloride Carbon Dioxide BUN Creatinine Glucose POC Glucose 116 H 120 H Lactic Acid Calcium AST ALT Alkaline Phosphatase Albumin Chest x-ray: image reviewed (COPD with mild interstitial changes. Improving left lower lobe atelectasis)
[2019-05-24] MEDS: SODIUM CHLORIDE FLUSH SYRINGE 10 ML IV SCH ×2 (15:37→21:12)
[2019-05-24] MEDS: PEPCID IV SCH (15:37)
[2019-05-24] MEDS: APRESOLINE IV PRN ×2 (16:50→22:42)
[2019-05-24] MEDS: TYLENOL PO PRN (20:53)
[2019-05-24] MEDS: LOVENOX SUB-Q SCH (21:12)
[2019-05-24] MEDS ORDERED: MORPHINE IV PRN (23:26)
[2019-05-25] MEDS: HumaLOG SUB-Q SCH ×4 (00:02→16:52)
--- NOTE | 2019-05-25 03:18 | XRay Report ---
CHEST 1 VIEW 2:18 AM INDICATION / CLINICAL INFORMATION: Follow-up respiratory failure. COMPARISON: Yesterday. FINDINGS: SUPPORT DEVICES: The endotracheal and nasogastric tubes are no longer present. HEART / MEDIASTINUM: No significant abnormality. LUNGS / PLEURA: Left lower lobe atelectasis/consolidation has increased. No pneumothorax. ADDITIONAL FINDINGS: No significant additional findings. IMPRESSION: Increasing left lower lobe atelectasis/consolidation. Signer Name: Carlos Alberto Mantilla MD Signed: 05/25/2019 3:14 AM Workstation Name: [id number]
[2019-05-25] MEDS: LACTATED RINGERS 1,000 ML IV SCH (04:37)
[2019-05-25] MEDS: APRESOLINE IV PRN (04:38)
[2019-05-25 05:00] LABS: Hematocrit 32.4 % (30.3-42.9); Mean Corpuscular HGB Conc 34 % (30-34); Mean Corpuscular Volume 85 fl (79-97); Platelet Count 428 K/mm3 (140-440); Red Blood Count 3.82 M/mm3 (3.65-5.03); Red Cell Distribution Width 16.9 % (13.2-15.2)
[2019-05-25] MEDS: SOLU-Medrol IV SCH ×3 (05:46→22:18)
[2019-05-25 07:14] LABS: BUN/Creatinine Ratio TNR; Blood Urea Nitrogen TNR mg/dL (7-17)
[2019-05-25 07:15] LABS: Calcium TNR mg/dL (8.4-10.2); Hemolysis Index TNR
[2019-05-25 08:37] LABS: Calcium 9.1 mg/dL (8.4-10.2)
[2019-05-25] MEDS: PULMICORT IH SCH ×4 (09:04→20:16)
[2019-05-25] MEDS: BROVANA NEBU IH SCH ×3 (09:04→20:16)
[2019-05-25] MEDS: PEPCID PO SCH (09:14)
[2019-05-25] MEDS: SODIUM CHLORIDE FLUSH SYRINGE 10 ML IV SCH (09:16)
--- NOTE | 2019-05-25 12:06 | Progress Note ---
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 DVT and GI prophylaxis Total critical care time 31 minute Subjective Date of service: 05/25/19 Interval history: Pt was extubated yesterday, seems to doing reasonably well. On 2 L nasal cannula. Complain of back pain had been on Lortab 10 mg at home. In addition had Klonopin and lisinopril 30 mg daily at home. Blood pressure is high. Objective Vital Signs - 12hr 05/25/19 05/25/19 05/25/19 00:30 01:00 01:31 Temperature Pulse Rate 91 H 92 H 93 H Pulse Rate [ Apical] Pulse Rate [ Bilateral Throughout] Pulse Rate [ From Monitor] Respiratory 14 13 14 Rate Respiratory Rate [Bilateral Throughout] Blood Pressure 182/86 159/74 182/86 O2 Sat by Pulse 97 98 98 Oximetry 05/25/19 05/25/19 05/25/19 02:00 02:31 02:43 Temperature 98.4 F Pulse Rate 94 H 92 H Pulse Rate [ Apical] Pulse Rate [ Bilateral Throughout] Pulse Rate [ From Monitor] Respiratory 14 12 Rate Respiratory Rate [Bilateral Throughout] Blood Pressure 168/82 159/74 O2 Sat by Pulse 98 98 Oximetry 05/25/19 05/25/19 05/25/19 03:00 03:31 04:00 Temperature Pulse Rate 86 87 89 Pulse Rate [ Apical] Pulse Rate [ Bilateral Throughout] Pulse Rate [ 89 From Monitor] Respiratory 13 15 20 Rate Respiratory Rate [Bilateral Throughout] Blood Pressure 168/82 171/89 175/84 O2 Sat by Pulse 99 96 95 Oximetry 05/25/19 05/25/19 05/25/19 04:30 04:38 05:00 Temperature Pulse Rate 80 77 85 Pulse Rate [ Apical] Pulse Rate [ Bilateral Throughout] Pulse Rate [ From Monitor] Respiratory 21 12 Rate Respiratory Rate [Bilateral Throughout] Blood Pressure 175/84 191/96 208/91 O2 Sat by Pulse 95 99 Oximetry 05/25/19 05/25/19 05/25/19 05:31 06:00 06:31 Temperature Pulse Rate 83 90 86 Pulse Rate [ Apical] Pulse Rate [ Bilateral Throughout] Pulse Rate [ From Monitor] Respiratory 15 22 25 H Rate Respiratory Rate [Bilateral Throughout] Blood Pressure 165/84 165/80 165/80 O2 Sat by Pulse 99 98 97 Oximetry 05/25/19 05/25/19 05/25/19 07:00 07:31 08:00 Temperature 97.7 F Pulse Rate 86 93 H 77 Pulse Rate [ 94 H Apical] Pulse Rate [ Bilateral Throughout] Pulse Rate [ From Monitor] Respiratory 14 25 H 25 H Rate Respiratory Rate [Bilateral Throughout] Blood Pressure 171/87 171/87 174/87 O2 Sat by Pulse 98 98 98 Oximetry 05/25/19 05/25/19 05/25/19 08:31 09:01 09:31 Temperature Pulse Rate 94 H 87 101 H Pulse Rate [ Apical] Pulse Rate [ Bilateral Throughout] Pulse Rate [ From Monitor] Respiratory 17 32 H 25 H Rate Respiratory Rate [Bilateral Throughout] Blood Pressure 174/87 174/87 174/87 O2 Sat by Pulse 97 98 100 Oximetry 05/25/19 05/25/19 09:32 09:33 Temperature Pulse Rate Pulse Rate [ Apical] Pulse Rate [ 91 H Bilateral Throughout] Pulse Rate [ From Monitor] Respiratory Rate Respiratory 22 Rate [Bilateral Throughout] Blood Pressure O2 Sat by Pulse 99 Oximetry Constitutional: no acute distress, other (cachectic) Eyes: non-icteric ENT: oropharynx moist Neck: supple Ascultation: Bilateral: diminished breath sounds, rhonchi Cardiovascular: regular rate and rhythm Gastrointestinal: normoactive bowel sounds, soft, non-tender Integumentary: normal Extremities: no cyanosis Neurologic: other (on vent) CBC and BMP: 05/25/19 04:32 05/25/19 07:54 ABG, PT/INR, D-dimer: ABG POC ABG pH 7.351 (7.35-7.45) 05/24/19 14:23 ABG pH 7.347 pH Units (7.350-7.450) L 05/24/19 Unknown POC ABG pCO2 42.5 (35-45) 05/24/19 14:23 ABG pCO2 42.0 mm Hg 05/24/19 Unknown POC ABG pO2 115 (80-105) H 05/24/19 14:23 ABG pO2 178.7 mm Hg (80.0-90.0) H 05/24/19 Unknown POC ABG HCO3 23.5 (22-26 mml/L) 05/24/19 14:23 POC ABG Total CO2 25 (23-27mmol/L) 05/24/19 14:23 POC ABG O2 Sat 98 05/24/19 14:23 ABG O2 Saturation 99.1 % (95.0-99.0) H 05/24/19 Unknown PT/INR, D-dimer PT 14.1 Sec. (12.2-14.9) 05/22/19 20:30 INR 1.12 (0.87-1.13) 05/22/19 20:30 Abnormal lab findings: Abnormal Labs 05/22/19 05/22/19 05/22/19 20:30 20:30 20:46 WBC 17.9 H RBC Hgb Hct RDW 17.4 H Plt Count 467 H Lymph % (Auto) Lymph # Seg Neutrophils % Seg Neuts % (Manual) Lymphocytes % (Manual) Seg Neutrophils # Seg Neutrophils # Man 12.2 H Lymphocytes # (Manual) POC ABG pH ABG pH POC ABG pCO2 POC ABG pO2 ABG pO2 ABG O2 Saturation ABG Base Excess ABG Hemoglobin Oxyhemoglobin Sodium 135 L Chloride 96.0 L Carbon Dioxide 15 L BUN 28 H Creatinine 1.6 H Glucose 282 H POC Glucose Lactic Acid 10.40 H* Calcium AST 156 H ALT 76 H Alkaline Phosphatase 154 H Albumin 3.0 L 05/22/19 05/23/19 05/23/19 22:37 00:45 01:27 WBC RBC Hgb Hct RDW Plt Count Lymph % (Auto) Lymph # Seg Neutrophils % Seg Neuts % (Manual) Lymphocytes % (Manual) Seg Neutrophils # Seg Neutrophils # Man Lymphocytes # (Manual) POC ABG pH 7.170 L 7.200 L ABG pH POC ABG pCO2 62.0 H 58.7 H POC ABG pO2 ABG pO2 ABG O2 Saturation ABG Base Excess ABG Hemoglobin Oxyhemoglobin Sodium Chloride Carbon Dioxide BUN Creatinine Glucose POC Glucose Lactic Acid 3.60 H* Calcium AST ALT Alkaline Phosphatase Albumin 05/23/19 05/23/19 05/23/19 05:32 05:32 07:56 WBC 21.6 H RBC Hgb Hct RDW 16.8 H Plt Count Lymph % (Auto) Lymph # Seg Neutrophils % Seg Neuts % (Manual) 95.0 H Lymphocytes % (Manual) 4.0 L Seg Neutrophils # Seg Neutrophils # Man 20.5 H Lymphocytes # (Manual) 0.9 L POC ABG pH ABG pH POC ABG pCO2 POC ABG pO2 ABG pO2 ABG O2 Saturation ABG Base Excess ABG Hemoglobin Oxyhemoglobin Sodium Chloride Carbon Dioxide BUN Creatinine Glucose POC Glucose Lactic Acid 2.30 H* 2.20 H* Calcium AST ALT Alkaline Phosphatase Albumin 05/23/19 05/23/19 05/23/19 07:56 09:00 15:47 WBC RBC Hgb Hct RDW Plt Count Lymph % (Auto) Lymph # Seg Neutrophils % Seg Neuts % (Manual) Lymphocytes % (Manual) Seg Neutrophils # Seg Neutrophils # Man Lymphocytes # (Manual) POC ABG pH ABG pH 7.314 L POC ABG pCO2 POC ABG pO2 ABG pO2 ABG O2 Saturation ABG Base Excess -2.8 L ABG Hemoglobin 10.4 L Oxyhemoglobin 94.8 L Sodium Chloride Carbon Dioxide 21 L BUN 26 H Creatinine Glucose 127 H POC Glucose 58 L Lactic Acid Calcium 7.9 L AST 111 H ALT 80 H Alkaline Phosphatase 168 H Albumin 2.9 L 05/23/19 05/23/19 05/23/19 16:32 18:41 20:13 WBC RBC Hgb Hct RDW Plt Count Lymph % (Auto) Lymph # Seg Neutrophils % Seg Neuts % (Manual) Lymphocytes % (Manual) Seg Neutrophils # Seg Neutrophils # Man Lymphocytes # (Manual) POC ABG pH ABG pH POC ABG pCO2 POC ABG pO2 ABG pO2 ABG O2 Saturation ABG Base Excess ABG Hemoglobin Oxyhemoglobin Sodium Chloride Carbon Dioxide BUN Creatinine Glucose POC Glucose 237 H 170 H 131 H Lactic Acid Calcium AST ALT Alkaline Phosphatase Albumin 05/24/19 05/24/19 05/24/19 00:15 03:55 03:55 WBC 15.4 H RBC 3.38 L Hgb 9.5 L Hct 29.7 L D RDW 17.0 H Plt Count Lymph % (Auto) 6.5 L Lymph # 1.0 L Seg Neutrophils % 90.0 H Seg Neuts % (Manual) Lymphocytes % (Manual) Seg Neutrophils # 13.9 H Seg Neutrophils # Man Lymphocytes # (Manual) POC ABG pH ABG pH POC ABG pCO2 POC ABG pO2 ABG pO2 ABG O2 Saturation ABG Base Excess ABG Hemoglobin Oxyhemoglobin Sodium Chloride 108.7 H Carbon Dioxide BUN 31 H Creatinine 1.3 H Glucose 112 H POC Glucose 109 H Lactic Acid Calcium 7.9 L AST ALT Alkaline Phosphatase Albumin 05/24/19 05/24/19 05/24/19 05:37 08:43 14:23 WBC RBC Hgb Hct RDW Plt Count Lymph % (Auto) Lymph # Seg Neutrophils % Seg Neuts % (Manual) Lymphocytes % (Manual) Seg Neutrophils # Seg Neutrophils # Man Lymphocytes # (Manual) POC ABG pH ABG pH POC ABG pCO2 POC ABG pO2 115 H ABG pO2 ABG O2 Saturation ABG Base Excess ABG Hemoglobin Oxyhemoglobin Sodium Chloride Carbon Dioxide BUN Creatinine Glucose POC Glucose 116 H 120 H Lactic Acid Calcium AST ALT Alkaline Phosphatase Albumin 05/24/19 05/24/19 05/24/19 19:38 23:47 Unknown WBC RBC Hgb Hct RDW Plt Count Lymph % (Auto) Lymph # Seg Neutrophils % Seg Neuts % (Manual) Lymphocytes % (Manual) Seg Neutrophils # Seg Neutrophils # Man Lymphocytes # (Manual) POC ABG pH ABG pH 7.347 L POC ABG pCO2 POC ABG pO2 ABG pO2 178.7 H ABG O2 Saturation 99.1 H ABG Base Excess -3.0 L ABG Hemoglobin 9.5 L Oxyhemoglobin Sodium Chloride Carbon Dioxide BUN Creatinine Glucose POC Glucose 116 H 122 H Lactic Acid Calcium AST ALT Alkaline Phosphatase Albumin 05/25/19 05/25/19 05/25/19 04:32 05:48 07:54 WBC 16.2 H RBC Hgb Hct RDW 16.9 H Plt Count Lymph % (Auto) Lymph # Seg Neutrophils % Seg Neuts % (Manual) Lymphocytes % (Manual) Seg Neutrophils # Seg Neutrophils # Man Lymphocytes # (Manual) POC ABG pH ABG pH POC ABG pCO2 POC ABG pO2 ABG pO2 ABG O2 Saturation ABG Base Excess ABG Hemoglobin Oxyhemoglobin Sodium Chloride Carbon Dioxide BUN 32 H Creatinine Glucose 121 H POC Glucose 115 H Lactic Acid Calcium AST ALT Alkaline Phosphatase Albumin Chest x-ray: image reviewed (COPD increasing left lower lobe atelectasis.)
[2019-05-25] MEDS: ZESTRIL PO SCH (12:26)
[2019-05-25] MEDS: NORCO 5/325 PO PRN ×2 (12:27→19:52)
[2019-05-25] MEDS ORDERED: PULMICORT IH SCH (12:42)
[2019-05-25] MEDS: DUONEB *Not for PRN Use IH SCH ×2 (13:32→20:16)
--- NOTE | 2019-05-25 15:12 | Progress Note ---
Assessment and Plan Assessment and plan: Patient is a 68 yo woman with a history of COPD who presented with respiratory arrest and was intubated by EMS in the field. SBPs in 200s. No prior visits here or any other history garnered. I currently and I called sonHernan at [phone] and granddaughter Lissette at [phone] and no answer. Severe sepsis probably 2/2 bronchiectasis -On IV antibiotic with levofloxacin -CTA chest showed chronic lung disease with bronchiectasis both lower lobes -Blood and sputum cultures pending Acute on chronic respiratory failure with hypercapnia -S/p intubation on MV -Pulmonology consulted inputs and noted Acute severe COPD exacerbation -treat with IV steroids, and to taper -treat with nebs -treat with abx Hypertensive urgency -on PRN antihypertensive Hyperglycemia -hba1c level is 6.0 ERIKA -most likely ATN with vasomotor nephropathy component -On IVF, will monitor cr level Acute metabolic acidosis -Likely secondary to the renal impairment -We will monitor level Transaminitis -Probably secondary to the sepsis -We'll monitor levels Severe not moderate protein calorie malnutrition, bmi 14.0 -Nutrition consulted and inputs noted. DVT prophylaxis with heparin and GI prophylaxis with famotidine Discussed with nursing staff and obtain inpatient home medication regimen. From a transfer to [facility] for further management. Will likely require rehabilitation on discharge. History Interval history: Patient seen and examined this morning now successfully extubated and on nasal cannula requiring no further process. Hospitalist Physical - Physical exam Narrative exam: Gen: cachetic, BMI 14.0, critically ill awake alert and oriented HEENT: NCAT, EOMI, PERRL, OP ett in place Neck: supple, no adenopathy, no thyromegaly, no JVD CVS/Heart: RRR, normal S1S2, pulses present bilaterally Chest/Lungs: diminished bs bilateral with rhonchi Symmetrical chest expansion, good air entry bilaterally GI/Abdomen: soft, NTND, good bowel sounds, no guarding or rebound /Bladder: no suprapubic tenderness, no CVA or paraspinal tenderness Extermity/Skin: no c/c/e, no obvious rash MSK: Moves Extremities Neuro: Alert and oriented Psych: Depressed - Constitutional Vitals: Temp Pulse Resp BP Pulse Ox 98.2 F 94 H 18 147/66 96 05/25/19 14:23 05/25/19 14:23 05/25/19 14:23 05/25/19 14:23 05/25/19 14:23 General appearance: Present: no acute distress, other (Pt is intubated and sedated) Results - Labs CBC & Chem 7: 05/25/19 04:32 05/25/19 07:54 Labs: Laboratory Last Values WBC 16.2 K/mm3 (4.5-11.0) H 05/25/19 04:32 RBC 3.82 M/mm3 (3.65-5.03) 05/25/19 04:32 Hgb 11.0 gm/dl (10.1-14.3) 05/25/19 04:32 Hct 32.4 % (30.3-42.9) 05/25/19 04:32 MCV 85 fl (79-97) 05/25/19 04:32 MCH 29 pg (28-32) 05/25/19 04:32 MCHC 34 % (30-34) 05/25/19 04:32 RDW 16.9 % (13.2-15.2) H 05/25/19 04:32 Plt Count 428 K/mm3 (140-440) 05/25/19 04:32 Lymph % (Auto) 6.5 % (13.4-35.0) L 05/24/19 03:55 [place] % (Auto) 3.4 % (0.0-7.3) 05/24/19 03:55 Eos % (Auto) 0.0 % (0.0-4.3) 05/24/19 03:55 Baso % (Auto) 0.1 % (0.0-1.8) 05/24/19 03:55 Lymph # 1.0 K/mm3 (1.2-5.4) L 05/24/19 03:55 [place] # 0.5 K/mm3 (0.0-0.8) 05/24/19 03:55 Eos # 0.0 K/mm3 (0.0-0.4) 05/24/19 03:55 Baso # 0.0 K/mm3 (0.0-0.1) 05/24/19 03:55 Add Manual Diff Complete 05/23/19 05:32 Total Counted 100 05/23/19 05:32 Seg Neutrophils % 90.0 % (40.0-70.0) H 05/24/19 03:55 Seg Neuts % (Manual) 95.0 % (40.0-70.0) H 05/23/19 05:32 0 % 05/23/19 05:32 4.0 % (13.4-35.0) L 05/23/19 05:32 Reactive Lymphs % (Man) 0 % 05/23/19 05:32 1.0 % (0.0-7.3) 05/23/19 05:32 0 % (0.0-4.3) 05/23/19 05:32 0 % (0.0-1.8) 05/23/19 05:32 0 % 05/23/19 05:32 0 % 05/23/19 05:32 0 % 05/23/19 05:32 0 % 05/23/19 05:32 Nucleated RBC % Not Reportable 05/23/19 05:32 Seg Neutrophils # 13.9 K/mm3 (1.8-7.7) H 05/24/19 03:55 Seg Neutrophils # Man 20.5 K/mm3 (1.8-7.7) H 05/23/19 05:32 Band Neutrophils # 0.0 K/mm3 05/23/19 05:32 0.9 K/mm3 (1.2-5.4) L 05/23/19 05:32 Abs React Lymphs (Man) 0.0 K/mm3 05/23/19 05:32 0.2 K/mm3 (0.0-0.8) 05/23/19 05:32 0.0 K/mm3 (0.0-0.4) 05/23/19 05:32 0.0 K/mm3 (0.0-0.1) 05/23/19 05:32 0.0 K/mm3 05/23/19 05:32 0.0 K/mm3 05/23/19 05:32 0.0 K/mm3 05/23/19 05:32 Blast Cells # 0.0 K/mm3 05/23/19 05:32 WBC Morphology Not Reportable 05/23/19 05:32 Hypersegmented Neuts Not Reportable 05/23/19 05:32 Hyposegmented Neuts Not Reportable 05/23/19 05:32 Hypogranular Neuts Not Reportable 05/23/19 05:32 Not Reportable 05/23/19 05:32 Not Reportable 05/23/19 05:32 Not Reportable 05/23/19 05:32 Not Reportable 05/23/19 05:32 Not Reportable 05/23/19 05:32 Not Reportable 05/23/19 05:32 Consistent w auto 05/23/19 05:32 Not Reportable 05/23/19 05:32 Plt Clumps, EDTA Not Reportable 05/23/19 05:32 Not Reportable 05/23/19 05:32 Not Reportable 05/23/19 05:32 Not Reportable 05/23/19 05:32 Plt Morphology Comment Not Reportable 05/23/19 05:32 RBC Morphology Normal 05/23/19 05:32 Dimorphic RBCs Not Reportable 05/23/19 05:32 Not Reportable 05/23/19 05:32 Not Reportable 05/23/19 05:32 Not Reportable 05/23/19 05:32 Not Reportable 05/23/19 05:32 Not Reportable 05/23/19 05:32 Not Reportable 05/23/19 05:32 Not Reportable 05/23/19 05:32 Not Reportable 05/23/19 05:32 Not Reportable 05/23/19 05:32 Not Reportable 05/23/19 05:32 Not Reportable 05/23/19 05:32 Not Reportable 05/23/19 05:32 Not Reportable 05/23/19 05:32 Not Reportable 05/23/19 05:32 Not Reportable 05/23/19 05:32 Not Reportable 05/23/19 05:32 Not Reportable 05/23/19 05:32 Not Reportable 05/23/19 05:32 Not Reportable 05/23/19 05:32 Acanthocytes (Spur) Not Reportable 05/23/19 05:32 Rouleaux Not Reportable 05/23/19 05:32 Not Reportable 05/23/19 05:32 Not Reportable 05/23/19 05:32 Not Reportable 05/23/19 05:32 Not Reportable 05/23/19 05:32 Hem Pathologist Commnt No 05/23/19 05:32 PT 14.1 Sec. (12.2-14.9) 05/22/19 20:30 INR 1.12 (0.87-1.13) 05/22/19 20:30 APTT 24.8 Sec. (24.2-36.6) 05/22/19 20:30 POC ABG pH 7.351 (7.35-7.45) 05/24/19 14:23 ABG pH 7.347 pH Units (7.350-7.450) L 05/24/19 Unknown POC ABG pCO2 42.5 (35-45) 05/24/19 14:23 ABG pCO2 42.0 mm Hg 05/24/19 Unknown POC ABG pO2 115 (80-105) H 05/24/19 14:23 ABG pO2 178.7 mm Hg (80.0-90.0) H 05/24/19 Unknown POC ABG HCO3 23.5 (22-26 mml/L) 05/24/19 14:23 ABG HCO3 22.5 mmol/L (20.0-26.0) 05/24/19 Unknown POC ABG Total CO2 25 (23-27mmol/L) 05/24/19 14:23 POC ABG O2 Sat 98 05/24/19 14:23 ABG O2 Saturation 99.1 % (95.0-99.0) H 05/24/19 Unknown ABG O2 Content 13.4 (0.0-44) 05/24/19 Unknown POC ABG Base Excess -2 ((-2) - (+3)mmol/L) 05/24/19 14:23 ABG Base Excess -3.0 mmol/L (-2.0-3.0) L 05/24/19 Unknown ABG Hemoglobin 9.5 gm/dl (12.0-16.0) L 05/24/19 Unknown ABG Carboxyhemoglobin 0.9 % (0.0-5.0) 05/24/19 Unknown ABG Methemoglobin 0.4 % (0.0-1.5) 05/24/19 Unknown 97.8 % (95.0-99.0) 05/24/19 Unknown 40 % 05/24/19 Unknown Sodium 141 mmol/L (137-145) 05/25/19 07:54 Potassium 3.7 mmol/L (3.6-5.0) D 05/25/19 07:54 Chloride 103.1 mmol/L (98-107) 05/25/19 07:54 Carbon Dioxide 25 mmol/L (22-30) 05/25/19 07:54 17 mmol/L 05/25/19 07:54 BUN 32 mg/dL (7-17) H 05/25/19 07:54 1.0 mg/dL (0.7-1.2) 05/25/19 07:54 Estimated GFR 55 ml/min 05/25/19 07:54 32 % 05/25/19 07:54 Glucose 121 mg/dL (65-100) H 05/25/19 07:54 POC Glucose 187 (70-105) H 05/25/19 11:54 6.0 % (4-6) 05/23/19 05:32 Lactic Acid 0.90 mmol/L (0.7-2.0) 05/23/19 14:27 Calcium 9.1 mg/dL (8.4-10.2) D 05/25/19 07:54 Magnesium 2.10 mg/dL (1.7-2.3) 05/22/19 20:30 < 0.20 mg/dL (0.1-1.2) 05/23/19 07:56 AST 111 units/L (5-40) H 05/23/19 07:56 ALT 80 units/L (7-56) H 05/23/19 07:56 168 units/L (35-129) H 05/23/19 07:56 110 units/L (30-135) 05/22/19 20:30 < 0.010 ng/mL (0.00-0.029) 05/22/19 20:30 6.7 g/dL (6.3-8.2) 05/23/19 07:56 2.9 g/dL (3.9-5) L 05/23/19 07:56 0.8 % 05/23/19 07:56 Yellow (Yellow) 05/22/19 21:53 Clear (Clear) 05/22/19 21:53 6.0 (5.0-7.0) 05/22/19 21:53 Ur Specific [place] 1.016 (1.003-1.030) 05/22/19 21:53 30 mg/dl mg/dL (Negative) 05/22/19 21:53 50 mg/dL (Negative) 05/22/19 21:53 Neg mg/dL (Negative) 05/22/19 21:53 Sm (Negative) 05/22/19 21:53 Neg (Negative) 05/22/19 21:53 Neg (Negative) 05/22/19 21:53 < 2.0 mg/dL (<2.0) 05/22/19 21:53 Ur Leukocyte Esterase Neg (Negative) 05/22/19 21:53 5.0 /HPF (0.0-6.0) 05/22/19 21:53 2.0 /HPF (0.0-6.0) 05/22/19 21:53 U Epithel Cells (Auto) < 1.0 /HPF (0-13.0) 05/22/19 21:53 Few /HPF 05/22/19 21:53 Active Medications - Current Medications Current Medications: Generic Name Dose Route Start Last Admin Trade Name Freq PRN Reason Stop Dose Admin Acetaminophen 650 mg 05/22/19 22:50 05/24/19 20:53 Tylenol PO 650 mg Q4H PRN Administration Pain MILD(1-3)/Fever >100.5/ALARCON Acetaminophen/Hydrocodone Bitart 1 each 05/25/19 10:46 05/25/19 12:27 [place] 5/325 PO 1 each Q8H PRN Administration Pain, Moderate (4-6) Albuterol/Ipratropium 1 ampul 05/25/19 14:00 05/25/19 13:32 Duoneb *Not For Prn Use* IH 1 ampul Q6HRT OSCAR Administration Arformoterol Tartrate 15 mcg 05/23/19 23:45 05/25/19 09:32 Brovana Nebu IH 15 mcg Q12HRT OSCAR Administration Budesonide 0.5 mg 05/25/19 13:00 05/25/19 13:32 Pulmicort IH Not Given Q12HRT OSCAR Dextrose 50 ml 05/23/19 01:08 D50w (25gm) Syringe IV PRN PRN Hypoglycemia Enoxaparin Sodium 40 mg 05/24/19 22:00 05/24/19 21:12 Lovenox SUB-Q 40 mg QDAY@2200 OSCAR Administration Famotidine 20 mg 05/25/19 10:00 05/25/19 09:14 Pepcid PO 20 mg DAILY OSCAR Administration Guaifenesin 600 mg 05/25/19 22:00 Mucinex Er PO BID OSCAR Hydralazine HCl 20 mg 05/25/19 01:11 05/25/19 04:38 Apresoline IV 20 mg Q4HR PRN Administration For SBP>170mmHg Hydrophilic Ointment 1 applic 05/22/19 20:25 Vaseline Lip Therapy TP Q2HR PRN Dry Lips Levofloxacin/Dextrose 500 mg in 100 mls @ 66.667 mls/hr 05/23/19 20:00 05/06 05/24 20:41 Levaquin 500mg/100ml IV 66.667 mls/hr Q48H [facility] Administration Protocol Insulin Human Lispro 0 unit 05/25/19 11:30 05/25/19 12:31 Humalog SUB-Q 2 unit ACHS [facility] Administration Protocol Lisinopril 20 mg 05/25/19 11:00 05/25/19 12:26 Zestril PO 20 mg QDAY OSCAR Administration Methylprednisolone Sodium Succinate 60 mg 05/24/19 06:00 05/25/19 13:44 Solu-Medrol IV 60 mg Q8HR OSCAR Administration Midazolam HCl 2 mg 05/22/19 20:25 Versed IV Q10MIN PRN Sedation Multi-Ingred Cream/Lotion/Oil/Oint 1 applic 05/22/19 20:25 Artificial Tears Ophth Oint OU Q4HR PRN Dry Eye(s) Ondansetron HCl 4 mg 05/22/19 22:50 Zofran IV Q8H PRN Nausea And Vomiting Sodium Chloride 10 ml 05/23/19 10:00 05/25/19 09:16 Sodium Chloride Flush Syringe 10 Ml IV 10 ml BID OSCAR Administration Sodium Chloride 10 ml 05/22/19 22:50 Sodium Chloride Flush Syringe 10 Ml IV PRN PRN LINE FLUSH Nutrition/Malnutrition Assess - Dietary Evaluation Nutrition/Malnutrition Findings: Nutrition Notes Start: 05/24/19 12:56 Freq: Status: Active Protocol: Document 05/24/19 12:56 LP (Rec: 05/24/19 13:14 LP [id number]) Nutrition Notes Need for Assessment generated from: MD Order Initial or Follow up Assessment Current Diagnosis Acute Kidney Injury,COPD, Sepsis,Respiratory Failure Current Diet NPO Labs/Tests BUN 31 Cr 1.3 Pertinent Medications LR at 50ml/hr Solumedrol Height 5 ft Weight 39.8 kg [place] Body Weight (kg) 45.45 BMI 17.1 Subjective/Other Information Consult for malnutrition and TF. Pt on vent. MD will try to extubate but if unable to extubate will need TF. Burn Absent Trauma Absent Minimum of two criteria Yes Body Fat Depletion Moderate depletion (severe) Muscle Mass Moderate Depletion (severe) Protein-Calorie Malnutrition Severe #1 Nutrition Diagnosis Malnutrition Etiology COPD As Evidenced by Signs and Symptoms muscle and fat wasting Is patient on ventilator? Yes Is Patient Ambulatory and/or Out of Bed No REE-([facility]-confined to bed) 1019.544 Kcal/Kg value to use for calculation 40 Approximate Energy Requirements Using 1592 kcal/Kg Calculation Used for Recommendations Kcal/kg Additional Notes Protein needs are 48-80g (1.2- 2g/kg) Fluid needs are 1ml/kcal Nutrition Intervention Change Diet Order: TF Nutrition Support: Osmolite 1.5 at 45ml/hr Flush with 135ml q4h Kcal 1,620 Protein (gm) 68 Fluid (mL) 823 Goal #1 Meet at least 80% of kcal and protein needs via TF Goal #2 Wt gain/maintenance Anticipated Discharge Needs: Unable to determine at this time Follow-Up By: 05/26/19 Additional Comments Follow for TF start/tolerance
[2019-05-25] MEDS: TYLENOL PO PRN (15:48)
[2019-05-25] MEDS ORDERED: HALDOL IM ONE (18:00)
[2019-05-25] MEDS: LEVAQUIN 500MG/100ML 500 MG/100 ML BAG IV SCH (19:55)
[2019-05-25] MEDS: MUCINEX ER PO SCH (22:17)
[2019-05-25] MEDS: LOVENOX SUB-Q SCH (22:19)
[2019-05-26] MEDS: DUONEB *Not for PRN Use IH SCH ×2 (03:21→09:18)
[2019-05-26] MEDS: SOLU-Medrol IV SCH (07:14)
[2019-05-26] MEDS ORDERED: SOLU-Medrol IV SCH ×2 (07:51→14:00)
--- NOTE | 2019-05-26 07:55 | Progress Note ---
Assessment and Plan Assessment and plan: Patient is a 68 yo woman with a history of COPD who presented with respiratory arrest and was intubated by EMS in the field. SBPs in 200s. No prior visits here or any other history garnered. I currently and I called sonHernan at [phone] and granddaughter Lissette at [phone] and no answer. Severe sepsis probably 2/2 bronchiectasis -On IV antibiotic with levofloxacin -CTA chest showed chronic lung disease with bronchiectasis both lower lobes -Blood and sputum cultures pending -Rj steroids Acute on chronic respiratory failure with hypercapnia -S/p intubation on MV -Pulmonology consulted inputs and noted Acute severe COPD exacerbation -treat with IV steroids, and taper -treat with nebs -treat with abx -check home 02 needs prior to discharge Hypertensive urgency -on PRN antihypertensive Hyperglycemia -hba1c level is 6.0 ERIKA -most likely ATN with vasomotor nephropathy component -On IVF, will monitor cr level -resolved, stop fluids Acute metabolic acidosis -Likely secondary to the renal impairment -We will monitor level Transaminitis -Probably secondary to the sepsis -We'll monitor levels Severe not moderate protein calorie malnutrition, bmi 14.0 -Nutrition consulted and inputs noted. DVT prophylaxis with heparin and GI prophylaxis with famotidine Discussed with nursing staff and obtain inpatient home medication regimen. From a transfer to [facility] for further management. Will likely require rehabilitation on discharge. Hospitalist Physical - Constitutional Vitals: Temp Pulse Resp BP Pulse Ox 99.5 F 81 18 119/66 97 05/26/19 02:02 05/26/19 02:02 05/26/19 02:02 05/26/19 02:02 05/26/19 02:02 General appearance: Present: no acute distress, other (Pt is intubated and sedated) Results - Labs CBC & Chem 7: 05/25/19 04:32 05/25/19 07:54 Labs: Laboratory Last Values WBC 16.2 K/mm3 (4.5-11.0) H 05/25/19 04:32 RBC 3.82 M/mm3 (3.65-5.03) 05/25/19 04:32 Hgb 11.0 gm/dl (10.1-14.3) 05/25/19 04:32 Hct 32.4 % (30.3-42.9) 05/25/19 04:32 MCV 85 fl (79-97) 05/25/19 04:32 MCH 29 pg (28-32) 05/25/19 04:32 MCHC 34 % (30-34) 05/25/19 04:32 RDW 16.9 % (13.2-15.2) H 05/25/19 04:32 Plt Count 428 K/mm3 (140-440) 05/25/19 04:32 Lymph % (Auto) 6.5 % (13.4-35.0) L 05/24/19 03:55 [place] % (Auto) 3.4 % (0.0-7.3) 05/24/19 03:55 Eos % (Auto) 0.0 % (0.0-4.3) 05/24/19 03:55 Baso % (Auto) 0.1 % (0.0-1.8) 05/24/19 03:55 Lymph # 1.0 K/mm3 (1.2-5.4) L 05/24/19 03:55 [place] # 0.5 K/mm3 (0.0-0.8) 05/24/19 03:55 Eos # 0.0 K/mm3 (0.0-0.4) 05/24/19 03:55 Baso # 0.0 K/mm3 (0.0-0.1) 05/24/19 03:55 Add Manual Diff Complete 05/23/19 05:32 Total Counted 100 05/23/19 05:32 Seg Neutrophils % 90.0 % (40.0-70.0) H 05/24/19 03:55 Seg Neuts % (Manual) 95.0 % (40.0-70.0) H 05/23/19 05:32 0 % 05/23/19 05:32 4.0 % (13.4-35.0) L 05/23/19 05:32 Reactive Lymphs % (Man) 0 % 05/23/19 05:32 1.0 % (0.0-7.3) 05/23/19 05:32 0 % (0.0-4.3) 05/23/19 05:32 0 % (0.0-1.8) 05/23/19 05:32 0 % 05/23/19 05:32 0 % 05/23/19 05:32 0 % 05/23/19 05:32 0 % 05/23/19 05:32 Nucleated RBC % Not Reportable 05/23/19 05:32 Seg Neutrophils # 13.9 K/mm3 (1.8-7.7) H 05/24/19 03:55 Seg Neutrophils # Man 20.5 K/mm3 (1.8-7.7) H 05/23/19 05:32 Band Neutrophils # 0.0 K/mm3 05/23/19 05:32 0.9 K/mm3 (1.2-5.4) L 05/23/19 05:32 Abs React Lymphs (Man) 0.0 K/mm3 05/23/19 05:32 0.2 K/mm3 (0.0-0.8) 05/23/19 05:32 0.0 K/mm3 (0.0-0.4) 05/23/19 05:32 0.0 K/mm3 (0.0-0.1) 05/23/19 05:32 0.0 K/mm3 05/23/19 05:32 0.0 K/mm3 05/23/19 05:32 0.0 K/mm3 05/23/19 05:32 Blast Cells # 0.0 K/mm3 05/23/19 05:32 WBC Morphology Not Reportable 05/23/19 05:32 Hypersegmented Neuts Not Reportable 05/23/19 05:32 Hyposegmented Neuts Not Reportable 05/23/19 05:32 Hypogranular Neuts Not Reportable 05/23/19 05:32 Not Reportable 05/23/19 05:32 Not Reportable 05/23/19 05:32 Not Reportable 05/23/19 05:32 Not Reportable 05/23/19 05:32 Not Reportable 05/23/19 05:32 Not Reportable 05/23/19 05:32 Consistent w auto 05/23/19 05:32 Not Reportable 05/23/19 05:32 Plt Clumps, EDTA Not Reportable 05/23/19 05:32 Not Reportable 05/23/19 05:32 Not Reportable 05/23/19 05:32 Not Reportable 05/23/19 05:32 Plt Morphology Comment Not Reportable 05/23/19 05:32 RBC Morphology Normal 05/23/19 05:32 Dimorphic RBCs Not Reportable 05/23/19 05:32 Not Reportable 05/23/19 05:32 Not Reportable 05/23/19 05:32 Not Reportable 05/23/19 05:32 Not Reportable 05/23/19 05:32 Not Reportable 05/23/19 05:32 Not Reportable 05/23/19 05:32 Not Reportable 05/23/19 05:32 Not Reportable 05/23/19 05:32 Not Reportable 05/23/19 05:32 Not Reportable 05/23/19 05:32 Not Reportable 05/23/19 05:32 Not Reportable 05/23/19 05:32 Not Reportable 05/23/19 05:32 Not Reportable 05/23/19 05:32 Not Reportable 05/23/19 05:32 Not Reportable 05/23/19 05:32 Not Reportable 05/23/19 05:32 Not Reportable 05/23/19 05:32 Not Reportable 05/23/19 05:32 Acanthocytes (Spur) Not Reportable 05/23/19 05:32 Rouleaux Not Reportable 05/23/19 05:32 Not Reportable 05/23/19 05:32 Not Reportable 05/23/19 05:32 Not Reportable 05/23/19 05:32 Not Reportable 05/23/19 05:32 Hem Pathologist Commnt No 05/23/19 05:32 PT 14.1 Sec. (12.2-14.9) 05/22/19 20:30 INR 1.12 (0.87-1.13) 05/22/19 20:30 APTT 24.8 Sec. (24.2-36.6) 05/22/19 20:30 POC ABG pH 7.351 (7.35-7.45) 05/24/19 14:23 ABG pH 7.347 pH Units (7.350-7.450) L 05/24/19 Unknown POC ABG pCO2 42.5 (35-45) 05/24/19 14:23 ABG pCO2 42.0 mm Hg 05/24/19 Unknown POC ABG pO2 115 (80-105) H 05/24/19 14:23 ABG pO2 178.7 mm Hg (80.0-90.0) H 05/24/19 Unknown POC ABG HCO3 23.5 (22-26 mml/L) 05/24/19 14:23 ABG HCO3 22.5 mmol/L (20.0-26.0) 05/24/19 Unknown POC ABG Total CO2 25 (23-27mmol/L) 05/24/19 14:23 POC ABG O2 Sat 98 05/24/19 14:23 ABG O2 Saturation 99.1 % (95.0-99.0) H 05/24/19 Unknown ABG O2 Content 13.4 (0.0-44) 05/24/19 Unknown POC ABG Base Excess -2 ((-2) - (+3)mmol/L) 05/24/19 14:23 ABG Base Excess -3.0 mmol/L (-2.0-3.0) L 05/24/19 Unknown ABG Hemoglobin 9.5 gm/dl (12.0-16.0) L 05/24/19 Unknown ABG Carboxyhemoglobin 0.9 % (0.0-5.0) 05/24/19 Unknown ABG Methemoglobin 0.4 % (0.0-1.5) 05/24/19 Unknown 97.8 % (95.0-99.0) 05/24/19 Unknown 40 % 05/24/19 Unknown Sodium 141 mmol/L (137-145) 05/25/19 07:54 Potassium 3.7 mmol/L (3.6-5.0) D 05/25/19 07:54 Chloride 103.1 mmol/L (98-107) 05/25/19 07:54 Carbon Dioxide 25 mmol/L (22-30) 05/25/19 07:54 17 mmol/L 05/25/19 07:54 BUN 32 mg/dL (7-17) H 05/25/19 07:54 1.0 mg/dL (0.7-1.2) 05/25/19 07:54 Estimated GFR 55 ml/min 05/25/19 07:54 32 % 05/25/19 07:54 Glucose 121 mg/dL (65-100) H 05/25/19 07:54 POC Glucose 99 (70-105) 05/26/19 06:31 6.0 % (4-6) 05/23/19 05:32 Lactic Acid 0.90 mmol/L (0.7-2.0) 05/23/19 14:27 Calcium 9.1 mg/dL (8.4-10.2) D 05/25/19 07:54 Magnesium 2.10 mg/dL (1.7-2.3) 05/22/19 20:30 < 0.20 mg/dL (0.1-1.2) 05/23/19 07:56 AST 111 units/L (5-40) H 05/23/19 07:56 ALT 80 units/L (7-56) H 05/23/19 07:56 168 units/L (35-129) H 05/23/19 07:56 110 units/L (30-135) 05/22/19 20:30 < 0.010 ng/mL (0.00-0.029) 05/22/19 20:30 6.7 g/dL (6.3-8.2) 05/23/19 07:56 2.9 g/dL (3.9-5) L 05/23/19 07:56 0.8 % 05/23/19 07:56 Yellow (Yellow) 05/22/19 21:53 Clear (Clear) 05/22/19 21:53 6.0 (5.0-7.0) 05/22/19 21:53 Ur Specific [place] 1.016 (1.003-1.030) 05/22/19 21:53 30 mg/dl mg/dL (Negative) 05/22/19 21:53 50 mg/dL (Negative) 05/22/19 21:53 Neg mg/dL (Negative) 05/22/19 21:53 Sm (Negative) 05/22/19 21:53 Neg (Negative) 05/22/19 21:53 Neg (Negative) 05/22/19 21:53 < 2.0 mg/dL (<2.0) 05/22/19 21:53 Ur Leukocyte Esterase Neg (Negative) 05/22/19 21:53 5.0 /HPF (0.0-6.0) 05/22/19 21:53 2.0 /HPF (0.0-6.0) 05/22/19 21:53 U Epithel Cells (Auto) < 1.0 /HPF (0-13.0) 05/22/19 21:53 Few /HPF 05/22/19 21:53 Active Medications - Current Medications Current Medications: Generic Name Dose Route Start Last Admin Trade Name Freq PRN Reason Stop Dose Admin Acetaminophen 650 mg 05/22/19 22:50 05/25/19 15:48 Tylenol PO 650 mg Q4H PRN Administration Pain MILD(1-3)/Fever >100.5/ALARCON Acetaminophen/Hydrocodone Bitart 1 each 05/25/19 10:46 05/25/19 19:52 [place] 5/325 PO 1 each Q8H PRN Administration Pain, Moderate (4-6) Albuterol/Ipratropium 1 ampul 05/25/19 14:00 05/26/19 03:21 Duoneb *Not For Prn Use* IH Not Given Q6HRT OSCAR Arformoterol Tartrate 15 mcg 05/23/19 23:45 05/25/19 20:16 Brovana Nebu IH Not Given Q12HRT OSCAR Budesonide 0.5 mg 05/25/19 13:00 05/25/19 20:16 Pulmicort IH Not Given Q12HRT OSCAR Dextrose 50 ml 05/23/19 01:08 D50w (25gm) Syringe IV PRN PRN Hypoglycemia Enoxaparin Sodium 40 mg 05/24/19 22:00 05/25/19 22:19 Lovenox SUB-Q 40 mg QDAY@2200 OSCAR Administration Famotidine 20 mg 05/25/19 10:00 05/25/19 09:14 Pepcid PO 20 mg DAILY OSCAR Administration Guaifenesin 600 mg 05/25/19 22:00 05/25/19 22:17 Mucinex Er PO 600 mg BID OSCAR Administration Hydralazine HCl 20 mg 05/25/19 01:11 05/25/19 04:38 Apresoline IV 20 mg Q4HR PRN Administration For SBP>170mmHg Hydrophilic Ointment 1 applic 05/22/19 20:25 Vaseline Lip Therapy TP Q2HR PRN Dry Lips Levofloxacin/Dextrose 500 mg in 100 mls @ 66.667 mls/hr 05/23/19 20:00 0 05/25/19 19:55 Levaquin 500mg/100ml IV 66.667 mls/hr Q48H OSCAR Administration Protocol Insulin Human Lispro 0 unit 05/25/19 11:30 05/25/19 16:52 Humalog SUB-Q Not Given ACHS [facility] Protocol Lisinopril 20 mg 05/25/19 11:00 05/25/19 12:26 Zestril PO 20 mg QDAY OSCAR Administration Methylprednisolone Sodium Succinate 40 mg 05/26/19 07:51 Solu-Medrol IV Q8HR OSCAR Midazolam HCl 2 mg 05/22/19 20:25 Versed IV Q10MIN PRN Sedation Multi-Ingred Cream/Lotion/Oil/Oint 1 applic 05/22/19 20:25 Artificial Tears Ophth Oint OU Q4HR PRN Dry Eye(s) Ondansetron HCl 4 mg 05/22/19 22:50 Zofran IV Q8H PRN Nausea And Vomiting Sodium Chloride 10 ml 05/23/19 10:00 05/25/19 09:16 Sodium Chloride Flush Syringe 10 Ml IV 10 ml BID OSCAR Administration Sodium Chloride 10 ml 05/22/19 22:50 Sodium Chloride Flush Syringe 10 Ml IV PRN PRN LINE FLUSH Nutrition/Malnutrition Assess - Dietary Evaluation Nutrition/Malnutrition Findings: Nutrition Notes Start: 05/24/19 12:56 Freq: Status: Active Protocol: Document 05/24/19 12:56 LP (Rec: 05/24/19 13:14 LP [id number]) Nutrition Notes Need for Assessment generated from: MD Order Initial or Follow up Assessment Current Diagnosis Acute Kidney Injury,COPD, Sepsis,Respiratory Failure Current Diet NPO Labs/Tests BUN 31 Cr 1.3 Pertinent Medications LR at 50ml/hr Solumedrol Height 5 ft Weight 39.8 kg [place] Body Weight (kg) 45.45 BMI 17.1 Subjective/Other Information Consult for malnutrition and TF. Pt on vent. MD will try to extubate but if unable to extubate will need TF. Burn Absent Trauma Absent Minimum of two criteria Yes Body Fat Depletion Moderate depletion (severe) Muscle Mass Moderate Depletion (severe) Protein-Calorie Malnutrition Severe #1 Nutrition Diagnosis Malnutrition Etiology COPD As Evidenced by Signs and Symptoms muscle and fat wasting Is patient on ventilator? Yes Is Patient Ambulatory and/or Out of Bed No REE-([place]. Jeor-confined to bed) 1019.544 Kcal/Kg value to use for calculation 40 Approximate Energy Requirements Using 1592 kcal/Kg Calculation Used for Recommendations Kcal/kg Additional Notes Protein needs are 48-80g (1.2- 2g/kg) Fluid needs are 1ml/kcal Nutrition Intervention Change Diet Order: TF Nutrition Support: Osmolite 1.5 at 45ml/hr Flush with 135ml q4h Kcal 1,620 Protein (gm) 68 Fluid (mL) 823 Goal #1 Meet at least 80% of kcal and protein needs via TF Goal #2 Wt gain/maintenance Anticipated Discharge Needs: Unable to determine at this time Follow-Up By: 05/26/19 Additional Comments Follow for TF start/tolerance
[2019-05-26] MEDS: HumaLOG SUB-Q SCH ×2 (07:57→12:01)
[2019-05-26] MEDS: NORCO 5/325 PO PRN (08:47)
[2019-05-26] MEDS: APRESOLINE IV PRN (08:47)
--- NOTE | 2019-05-26 08:51 | Discharge Summary ---
Providers - Providers Date of Admission: 05/22/19 21:45 Attending physician: JUDI RODRIGUEZ MD 05/22/19 20:22 Consult to Physician [CONS] Urgent Comment: Consulting Provider: SEVERO FRAZIER Physician Instructions: Reason For Exam: resp arrest 05/22/19 20:29 Consult to Physician [CONS] Urgent Comment: Dr. Jane spoke with Dr. Kiser @ 2024 Consulting Provider: CLAUDIA KISER Physician Instructions: Reason For Exam: resp arrest intubated 05/23/19 00:33 Consult to Dietitian/Nutrition [CONS] Routine Physician Instructions: Reason For Exam: Reason for Consult: Malnutrition 05/25/19 11:32 Occupational Therapy Evaluate and Treat [CONS] Routine Comment: Reason For Exam: debility Physical Therapy Evaluation and Treat [CONS] Routine Comment: Reason For Exam: debility Primary care physician: EVELYN VORA Hospitalization Reason for admission: respiratory failure Condition: Stable Hospital course: Patient is a 68 yo woman with a history of COPD who presented with respiratory arrest and was intubated by EMS in the field. SBPs in 200s. No prior visits here or any other history garnered. i spoke to granddaughter Lissette at [phone] who informs me patient continues to smoke till this admission, extensive counselling was given to the patient. she is very adamant to be discharged today, I advised her on why I believe an extra day will be beneficial but she declines, Her Granddaughter also states that she has been non complaint with medications, counselling was also provided and patient verablized understanding. she will be discharged with tapering steroids, abx and outpatient follow up with Pulmonary doctors Severe sepsis probably 2/2 bronchiectasis -Treated with IV antibiotic with levofloxacin -CTA chest showed chronic lung disease with bronchiectasis both lower lobes -Blood and sputum cultures pending -Jr steroids Acute on chronic respiratory failure with hypercapnia -S/p intubation on MV -Pulmonology consulted inputs and noted Acute severe COPD exacerbation -treated with IV steroids, and taper -treated with nebs -treated with abx -checked home 02 needs prior to discharge Hypertensive urgency -on PRN antihypertensive Hyperglycemia -hba1c level is 6.0 ERIKA -most likely ATN with vasomotor nephropathy component -On IVF, will monitor cr level -resolved, stop fluids Acute metabolic acidosis -Likely secondary to the renal impairment -We will monitor level Transaminitis -Probably secondary to the sepsis -We'll monitor levels Severe not moderate protein calorie malnutrition, bmi 14.0 -Nutrition consulted and inputs noted. Disposition: DC/[place]-06 HOME UND[facility] Time spent for discharge: 35 mins Core Measure Documentation - Palliative Care Palliative Care/ Comfort Measures: Not Applicable - Core Measures Any of the following diagnoses?: none Exam - Physical Exam Narrative exam: Gen: cachetic, BMI 14.0, ill appearing, awake alert and oriented HEENT: NCAT, EOMI, PERRL, marked temporal wasting Neck: supple, no adenopathy, no thyromegaly, no JVD CVS/Heart: RRR, normal S1S2, pulses present bilaterally Chest/Lungs: diminished bs bilateral with rhonchi Symmetrical chest expansion, good air entry bilaterally GI/Abdomen: soft, NTND, good bowel sounds, no guarding or rebound /Bladder: no suprapubic tenderness, no CVA or paraspinal tenderness Extermity/Skin: no c/c/e, no obvious rash MSK: Moves Extremities Neuro: Alert and oriented Psych: Depressed - Constitutional Vitals: Temp Pulse Resp BP Pulse Ox 98.1 F 76 18 183/99 95 05/26/19 08:10 05/26/19 08:10 05/26/19 08:10 05/26/19 08:10 05/26/19 08:10 Plan Activity: advance as tolerated, fall precautions Special Instructions: record daily weights, record daily BP diary, smoking cessation Care Plan Goals: Improved breathing Plan of Treatment: Nebs, steroids taper, abx, and advised to quit tobacco use Follow up with: EVELYN VORA MD [Primary Care Provider] - 3-5 Days ALISON JUAREZ MD [Staff Physician] - 7 Days Prescriptions: Fluticasone/Salmeterol [Advair 250-50 Diskus] 1 each IH BID 30 Days blst.w.dev Albuterol Sulfate [Albuterol 0.63% NEBS] 0.63 mg IH TID PRN #60 ml PRN Reason: Wheezing Ipratropium/Albuterol Sulfate [DUONEB *Not for PRN Use*] 1 ampul IH Q8HR #90 ampul.neb levoFLOXacin [Levaquin TAB] 500 mg PO QDAY #3 tablet Prednisone [predniSONE 10 mg (6-Day Pack, 21 Tabs)] 10 mg PO .TAPER #1 tab.ds.pk Lisinopril [Zestril TAB] 20 mg PO QDAY #30 tablet
[2019-05-26] MEDS: SODIUM CHLORIDE FLUSH SYRINGE 10 ML IV SCH (09:05)
[2019-05-26] MEDS: MUCINEX ER PO SCH (09:06)
[2019-05-26] MEDS: PEPCID PO SCH (09:06)
[2019-05-26] MEDS: ZESTRIL PO SCH (09:09)
[2019-05-26] MEDS: BROVANA NEBU IH SCH (09:18)
[2019-05-26] MEDS: PULMICORT IH SCH (09:18)
[2019-05-26 10:56] VITALS: BP 135/86
--- NOTE | 2019-05-26 11:11 | Progress Note ---
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 She is to continue with LABA and also LAMA. She has home oxygen at home. She will need antibiotics and Mucinex and Acapella flutter valve on discharge. sputum for Gram stain and BALLISTICIAN was never sent. CPT. DVT and GI prophylaxis Need follow-up in office with follow-up chest x-ray and pulmonary function testing. Smoking cessation counseling was provided. Subjective Date of service: 05/26/19 Interval history: Pt was extubated 2 days ago, seems to doing reasonably well. On 2 L nasal cannula. Complain of back pain had been on Lortab 10 mg at home. In addition had Klonopin and lisinopril 30 mg daily at home. Blood pressure still high on lisinopril. Objective Vital Signs - 12hr 05/26/19 05/26/19 05/26/19 01:57 01:59 02:02 Temperature 98.9 F 99.5 F Pulse Rate 70 81 Pulse Rate [ Anterior] Pulse Rate [ Bilateral Throughout] Respiratory 18 18 Rate Respiratory Rate [Anterior] Respiratory Rate [Bilateral Throughout] Blood Pressure 190/99 119/66 O2 Sat by Pulse 93 97 Oximetry 05/26/19 05/26/19 05/26/19 08:10 08:47 09:08 Temperature 98.1 F Pulse Rate 76 76 Pulse Rate [ Anterior] Pulse Rate [ Bilateral Throughout] Respiratory 18 20 Rate Respiratory Rate [Anterior] Respiratory Rate [Bilateral Throughout] Blood Pressure 183/99 183/99 176/92 O2 Sat by Pulse 95 Oximetry 05/26/19 05/26/19 05/26/19 09:09 09:19 09:28 Temperature Pulse Rate 97 H Pulse Rate [ 106 H Anterior] Pulse Rate [ 103 H Bilateral Throughout] Respiratory Rate Respiratory 18 Rate [Anterior] Respiratory 18 Rate [Bilateral Throughout] Blood Pressure 176/92 O2 Sat by Pulse 95 Oximetry 05/26/19 10:54 Temperature Pulse Rate 104 H Pulse Rate [ Anterior] Pulse Rate [ Bilateral Throughout] Respiratory Rate Respiratory Rate [Anterior] Respiratory Rate [Bilateral Throughout] Blood Pressure 135/86 O2 Sat by Pulse 93 Oximetry Constitutional: no acute distress, other (cachectic) Eyes: non-icteric ENT: oropharynx moist Neck: supple Ascultation: Bilateral: diminished breath sounds, rhonchi Cardiovascular: regular rate and rhythm Gastrointestinal: normoactive bowel sounds, soft, non-tender Integumentary: normal Extremities: no cyanosis Neurologic: other (on vent) CBC and BMP: 05/25/19 04:32 05/25/19 07:54 ABG, PT/INR, D-dimer: ABG POC ABG pH 7.351 (7.35-7.45) 05/24/19 14:23 ABG pH 7.347 pH Units (7.350-7.450) L 05/24/19 Unknown POC ABG pCO2 42.5 (35-45) 05/24/19 14:23 ABG pCO2 42.0 mm Hg 05/24/19 Unknown POC ABG pO2 115 (80-105) H 05/24/19 14:23 ABG pO2 178.7 mm Hg (80.0-90.0) H 05/24/19 Unknown POC ABG HCO3 23.5 (22-26 mml/L) 05/24/19 14:23 POC ABG Total CO2 25 (23-27mmol/L) 05/24/19 14:23 POC ABG O2 Sat 98 05/24/19 14:23 ABG O2 Saturation 99.1 % (95.0-99.0) H 05/24/19 Unknown PT/INR, D-dimer PT 14.1 Sec. (12.2-14.9) 05/22/19 20:30 INR 1.12 (0.87-1.13) 05/22/19 20:30 Abnormal lab findings: Abnormal Labs 05/22/19 05/22/19 05/22/19 20:30 20:30 20:46 WBC 17.9 H RBC Hgb Hct RDW 17.4 H Plt Count 467 H Lymph % (Auto) Lymph # Seg Neutrophils % Seg Neuts % (Manual) Lymphocytes % (Manual) Seg Neutrophils # Seg Neutrophils # Man 12.2 H Lymphocytes # (Manual) POC ABG pH ABG pH POC ABG pCO2 POC ABG pO2 ABG pO2 ABG O2 Saturation ABG Base Excess ABG Hemoglobin Oxyhemoglobin Sodium 135 L Chloride 96.0 L Carbon Dioxide 15 L BUN 28 H Creatinine 1.6 H Glucose 282 H POC Glucose Lactic Acid 10.40 H* Calcium AST 156 H ALT 76 H Alkaline Phosphatase 154 H Albumin 3.0 L 05/22/19 05/23/19 05/23/19 22:37 00:45 01:27 WBC RBC Hgb Hct RDW Plt Count Lymph % (Auto) Lymph # Seg Neutrophils % Seg Neuts % (Manual) Lymphocytes % (Manual) Seg Neutrophils # Seg Neutrophils # Man Lymphocytes # (Manual) POC ABG pH 7.170 L 7.200 L ABG pH POC ABG pCO2 62.0 H 58.7 H POC ABG pO2 ABG pO2 ABG O2 Saturation ABG Base Excess ABG Hemoglobin Oxyhemoglobin Sodium Chloride Carbon Dioxide BUN Creatinine Glucose POC Glucose Lactic Acid 3.60 H* Calcium AST ALT Alkaline Phosphatase Albumin 05/23/19 05/23/19 05/23/19 05:32 05:32 07:56 WBC 21.6 H RBC Hgb Hct RDW 16.8 H Plt Count Lymph % (Auto) Lymph # Seg Neutrophils % Seg Neuts % (Manual) 95.0 H Lymphocytes % (Manual) 4.0 L Seg Neutrophils # Seg Neutrophils # Man 20.5 H Lymphocytes # (Manual) 0.9 L POC ABG pH ABG pH POC ABG pCO2 POC ABG pO2 ABG pO2 ABG O2 Saturation ABG Base Excess ABG Hemoglobin Oxyhemoglobin Sodium Chloride Carbon Dioxide BUN Creatinine Glucose POC Glucose Lactic Acid 2.30 H* 2.20 H* Calcium AST ALT Alkaline Phosphatase Albumin 05/23/19 05/23/19 05/23/19 07:56 09:00 15:47 WBC RBC Hgb Hct RDW Plt Count Lymph % (Auto) Lymph # Seg Neutrophils % Seg Neuts % (Manual) Lymphocytes % (Manual) Seg Neutrophils # Seg Neutrophils # Man Lymphocytes # (Manual) POC ABG pH ABG pH 7.314 L POC ABG pCO2 POC ABG pO2 ABG pO2 ABG O2 Saturation ABG Base Excess -2.8 L ABG Hemoglobin 10.4 L Oxyhemoglobin 94.8 L Sodium Chloride Carbon Dioxide 21 L BUN 26 H Creatinine Glucose 127 H POC Glucose 58 L Lactic Acid Calcium 7.9 L AST 111 H ALT 80 H Alkaline Phosphatase 168 H Albumin 2.9 L 05/23/19 05/23/19 05/23/19 16:32 18:41 20:13 WBC RBC Hgb Hct RDW Plt Count Lymph % (Auto) Lymph # Seg Neutrophils % Seg Neuts % (Manual) Lymphocytes % (Manual) Seg Neutrophils # Seg Neutrophils # Man Lymphocytes # (Manual) POC ABG pH ABG pH POC ABG pCO2 POC ABG pO2 ABG pO2 ABG O2 Saturation ABG Base Excess ABG Hemoglobin Oxyhemoglobin Sodium Chloride Carbon Dioxide BUN Creatinine Glucose POC Glucose 237 H 170 H 131 H Lactic Acid Calcium AST ALT Alkaline Phosphatase Albumin 05/24/19 05/24/19 05/24/19 00:15 03:55 03:55 WBC 15.4 H RBC 3.38 L Hgb 9.5 L Hct 29.7 L D RDW 17.0 H Plt Count Lymph % (Auto) 6.5 L Lymph # 1.0 L Seg Neutrophils % 90.0 H Seg Neuts % (Manual) Lymphocytes % (Manual) Seg Neutrophils # 13.9 H Seg Neutrophils # Man Lymphocytes # (Manual) POC ABG pH ABG pH POC ABG pCO2 POC ABG pO2 ABG pO2 ABG O2 Saturation ABG Base Excess ABG Hemoglobin Oxyhemoglobin Sodium Chloride 108.7 H Carbon Dioxide BUN 31 H Creatinine 1.3 H Glucose 112 H POC Glucose 109 H Lactic Acid Calcium 7.9 L AST ALT Alkaline Phosphatase Albumin 05/24/19 05/24/19 05/24/19 05:37 08:43 14:23 WBC RBC Hgb Hct RDW Plt Count Lymph % (Auto) Lymph # Seg Neutrophils % Seg Neuts % (Manual) Lymphocytes % (Manual) Seg Neutrophils # Seg Neutrophils # Man Lymphocytes # (Manual) POC ABG pH ABG pH POC ABG pCO2 POC ABG pO2 115 H ABG pO2 ABG O2 Saturation ABG Base Excess ABG Hemoglobin Oxyhemoglobin Sodium Chloride Carbon Dioxide BUN Creatinine Glucose POC Glucose 116 H 120 H Lactic Acid Calcium AST ALT Alkaline Phosphatase Albumin 05/24/19 05/24/19 05/24/19 19:38 23:47 Unknown WBC RBC Hgb Hct RDW Plt Count Lymph % (Auto) Lymph # Seg Neutrophils % Seg Neuts % (Manual) Lymphocytes % (Manual) Seg Neutrophils # Seg Neutrophils # Man Lymphocytes # (Manual) POC ABG pH ABG pH 7.347 L POC ABG pCO2 POC ABG pO2 ABG pO2 178.7 H ABG O2 Saturation 99.1 H ABG Base Excess -3.0 L ABG Hemoglobin 9.5 L Oxyhemoglobin Sodium Chloride Carbon Dioxide BUN Creatinine Glucose POC Glucose 116 H 122 H Lactic Acid Calcium AST ALT Alkaline Phosphatase Albumin 05/25/19 05/25/19 05/25/19 04:32 05:48 07:54 WBC 16.2 H RBC Hgb Hct RDW 16.9 H Plt Count Lymph % (Auto) Lymph # Seg Neutrophils % Seg Neuts % (Manual) Lymphocytes % (Manual) Seg Neutrophils # Seg Neutrophils # Man Lymphocytes # (Manual) POC ABG pH ABG pH POC ABG pCO2 POC ABG pO2 ABG pO2 ABG O2 Saturation ABG Base Excess ABG Hemoglobin Oxyhemoglobin Sodium Chloride Carbon Dioxide BUN 32 H Creatinine Glucose 121 H POC Glucose 115 H Lactic Acid Calcium AST ALT Alkaline Phosphatase Albumin 05/25/19 05/25/19 11:54 16:43 WBC RBC Hgb Hct RDW Plt Count Lymph % (Auto) Lymph # Seg Neutrophils % Seg Neuts % (Manual) Lymphocytes % (Manual) Seg Neutrophils # Seg Neutrophils # Man Lymphocytes # (Manual) POC ABG pH ABG pH POC ABG pCO2 POC ABG pO2 ABG pO2 ABG O2 Saturation ABG Base Excess ABG Hemoglobin Oxyhemoglobin Sodium Chloride Carbon Dioxide BUN Creatinine Glucose POC Glucose 187 H 137 H Lactic Acid Calcium AST ALT Alkaline Phosphatase Albumin
== END 2019-05-26 13:30 | disposition home health service (06) | DRG 871 ==
LOC: ED 19:59 → CC1 21:45 → 2B-ACE 05-25 14:11
PROVIDERS: ADMIT Internal Medicine; ATTEND Internal Medicine
PROC: 5A1945Z Respiratory Ventilation, 24-96 Consecutive Hours (ICD-10-PCS; principal; 2019-05-22)
PROC: 0BH17EZ Insertion of Endotracheal Airway into Trachea, Via Natural or Artificial Opening (ICD-10-PCS; 2019-05-22)
PROC: 4A033R1 Measurement of Arterial Saturation, Peripheral, Percutaneous Approach (ICD-10-PCS; 2019-05-22)
DX: A41.9 Sepsis, unspecified organism (principal); J96.22 Acute and chronic respiratory failure with hypercapnia; N17.0 Acute kidney failure with tubular necrosis; J96.21 Acute and chronic respiratory failure with hypoxia; J47.9 Bronchiectasis, uncomplicated; E44.0 Moderate protein-calorie malnutrition; Z68.1 Body mass index [BMI] 19.9 or less, adult; R65.20 Severe sepsis without septic shock; F17.200 Nicotine dependence, unspecified, uncomplicated; J43.2 Centrilobular emphysema; I16.0 Hypertensive urgency; R73.9 Hyperglycemia, unspecified; R74.0 Nonspecific elevation of levels of transaminase and lactic acid dehydrogenase [LDH]; C80.1 Malignant (primary) neoplasm, unspecified; Z71.6 Tobacco abuse counseling
CPT/HCPCS: 36415; 36600; 70450; 71045; 71275; 74018; 80048; 80053; 81001; 82140; 82550; 82803; 82962; 83036; 83735; 84484; 85007; 85025; 85027; 85610; 85730; 87040; 87086; 93005; 93010; 94002; 94003; 94640; 94667; 94760; G0378; J0360; J1630; J1644; J1650; J1815; J1956; J2250; J2270; J2930; J3010; J3475; J7030; J7120; Q9967

== ENCOUNTER 2019-09-09 20:46 | Emergency (ER) | payer MEDICARE ==
--- NOTE | 2019-09-09 21:25 | Emergency Department Report ---
HPI - General Chief Complaint: Altered Mental Status Time Seen by Provider: 09/09/19 21:06 - HPI HPI: Room 17 The patient is 68-year-old female presenting with chief complaint of altered mental status. Per EMS the patient was found sleeping on the curb outside of a hotel. Patient falls asleep easily. When awakened she appears startled but then drifts back to sleep. Patient does not answer questions Location: [See above] Duration: [See above] Quality: [See above] Severity: [See above] Timing: [See above] Context: [See above] Modifying factors: [See above] Associated signs and symptoms: [see above] ED Past Medical Hx - Past Medical History Previous Medical History?: Yes Hx Hypertension: Yes Hx COPD: Yes Additional medical history: emphysema - Surgical History Past Surgical History?: No - Family History Family history: no significant - Social History Smoking Status: Unknown if ever smoked Substance Use Type: None - Medications Home Medications: Home Medications Medication Instructions Recorded Confirmed Last Taken Type Meloxicam [Mobic] 1 tab PO DAILY 05/25/19 05/25/19 Unknown History Albuterol Sulfate [Albuterol 0.63% 0.63 mg IH TID PRN #60 ml 05/26/19 Unknown Rx NEBS] Fluticasone/Salmeterol [Advair 1 each IH BID 30 Days blst.w.dev 05/26/19 Unknown Rx 250-50 Diskus] Ipratropium/Albuterol Sulfate 1 ampul IH Q8HR #90 ampul.neb 05/26/19 Unknown Rx [DUONEB *Not for PRN Use*] Lisinopril [Zestril TAB] 20 mg PO QDAY #30 tablet 05/26/19 Unknown Rx Prednisone [predniSONE 10 mg 10 mg PO .TAPER #1 tab.ds.pk 05/26/19 Unknown Rx (6-Day Pack, 21 Tabs)] levoFLOXacin [Levaquin TAB] 500 mg PO QDAY #3 tablet 05/26/19 Unknown Rx ED Review of Systems ROS: Stated complaint: AMS Other details as noted in HPI Comment: Unobtainable due to pts medical conditions Physical Exam - Physical Exam Physical Exam: GENERAL: The patient is well-developed well-nourished female sleeping on stretcher not appearing to be in acute distress. Awake is easily by verbal and tactile stimuli but then drifts back to sleep HEENT: Normocephalic. Atraumatic. Extraocular motions are intact. Patient has moist mucous membranes. NECK: Supple. Trachea midline CHEST/LUNGS: Clear to auscultation. There is no respiratory distress noted. HEART/CARDIOVASCULAR: Regular. There is no tachycardia. There is no gallop rub or murmur. ABDOMEN: Abdomen is soft, nontender. Patient has normal bowel sounds. There is no abdominal distention. SKIN: There is no rash. There is no edema. There is no diaphoresis. NEURO: The patient is asleep but easily awakened. Patient appears startled but then goes back to sleep. Patient does not follow commands.. The patient is not cooperative with neurologic exam. The patient has normal speech MUSCULOSKELETAL: There is no evidence of acute injury. ED Medical Decision Making - Lab Data Result diagrams: 09/09/19 21:07 09/09/19 21:15 - EKG Data -: EKG Interpreted by De EKG shows normal: sinus rhythm Rate: normal - EKG Data When compared to previous EKG there are: previous EKG unavailable Interpretation: nonspecific ST-T wave santi (T-wave inversions in leads 2, 3, aVF, 1, V4, V5, V6) - Radiology Data Radiology results: report reviewed (CT head), image reviewed (CT head) [place] [address] Cat Scan Report Signed Patient: KEN DELA CRUZ MR#: [id number] [birth year] : 1950 Acct:[id number] Age/Sex: 68 / F ADM Date: 09/09/19 Loc: ED Attending Dr: Ordering Physician: KAVIN ALLEN MD Date of Service: 09/09/19 Procedure(s): CT head/brain wo con Accession Number(s): [id number] cc: KAVIN ALLEN MD CT head/brain wo con INDICATION / CLINICAL INFORMATION: 68 years Female; altered mental status. TECHNIQUE: Routine CT head without contrast. All CT scans at this location are performed using CT dose reduction for ALARA by means of automated exposure control. COMPARISON: FINDINGS: BRAIN / INTRACRANIAL CONTENTS: No acute hemorrhage, mass effect, midline shift, hydrocephalus, or acute, large territorial infarct. No chronic infarct or atrophy appreciated. There are moderate to extensive areas of decreased attenuation in the white matter of the cerebral hemispheres, as well as the gangliocapsular regions. These are nonspecific findings and may be re lated to microangiopathy (hypertension, diabetes, atherosclerosis), given the patient's age. Pontine disease noted. It might be difficult to evaluate for small areas of ischemia without diffusion imaging by MRI. CRANIOCERVICAL JUNCTION: No significant abnormality. ORBITS: No significant abnormality of visualized orbits. SINUSES / MASTOIDS: No significant abnormality the visualized paranasal sinuses or mastoid air cells. ADDITIONAL FINDINGS: Atherosclerotic disease is seen in the anterior circulation. IMP RESSION: 1. No focal mass, hemorrhage, hydrocephalus, or acute, large territorial infarct. Signer Name: Quincy Diaz MD, III Signed: 09/09/2019 10:24 PM Workstation Name: [id number] Transcribed By: HR Dictated By: Quincy Diaz MD Electronically Authenticated By: Quincy Diaz MD Signed Date/Time: 09/09/192223 DD/ 21 TD/TT: - Differential Diagnosis AMS, intoxication, ICH, hepatic encephalopathy Critical care attestation.: If time is entered above; I have spent that time in minutes in the direct care of this critically ill patient, excluding procedure time. ED Disposition Clinical Impression: Altered mental status, Amphetamine abuse Disposition: DC-01 TO HOME OR SELFCARE Is pt being admited?: No Does the pt Need Aspirin: No Condition: Stable Referrals: PRIMARY CAREMD [Primary Care Provider] - 3-5 Days
[2019-09-09 21:39] LABS: Basophils % (Auto) 0.3 % (0.0-1.8); Eosinophils % (Auto) 0.2 % (0.0-4.3); Hematocrit 39.7 % (30.3-42.9); Hemoglobin 12.3 gm/dl (10.1-14.3); Lymphocytes # (Auto) 0.9 K/mm3 (1.2-5.4); Lymphocytes % (Auto) 7.3 % (13.4-35.0); Mean Corpuscular HGB Conc 31 % (30-34); Mean Corpuscular Volume 84 fl (79-97); Monocytes # (Auto) 0.7 K/mm3 (0.0-0.8); Monocytes % (Auto) 5.7 % (0.0-7.3); Platelet Count 427 K/mm3 (140-440); Red Blood Count 4.72 M/mm3 (3.65-5.03); Red Cell Distribution Width 17.4 % (13.2-15.2)
[2019-09-09 21:42] LABS: Creatine Kinase MB 4.8 ng/mL (0.0-4.0)
[2019-09-09 21:43] LABS: Alanine Aminotransferase 13 units/L (7-56); Albumin 4.4 g/dL (3.9-5); BUN/Creatinine Ratio 21; Blood Urea Nitrogen 48 mg/dL (7-17); Calcium 10.2 mg/dL (8.4-10.2); Hemolysis Index 2
[2019-09-09 22:00] LABS: Free T4 (Free Thyroxine) 1.22 ng/dL (0.76-1.46)
--- NOTE | 2019-09-09 22:29 | Cat Scan Report ---
CT head/brain wo con INDICATION / CLINICAL INFORMATION: 68 years Female; altered mental status. TECHNIQUE: Routine CT head without contrast. All CT scans at this location are performed using CT dos e reduction for ALARA by means of automated exposure control. COMPARISON: FINDINGS: BRAIN / INTRACRANIAL CONTENTS: No acute hemorrhage, mass effect, midline shift, hydrocephalus, or acu te, large territorial infarct. No chronic infarct or atrophy appreciated. There are moderate to extensive areas of decreased attenuation in the white matter of the cerebral he mispheres, as well as the gangliocapsular regions. These are nonspecific findings and may be related to microangiopathy (hypertension, diabetes, atherosclerosis), given the patient's age. Pontine diseas e noted. It might be difficult to evaluate for small areas of ischemia without diffusion imaging by M MARILY. CRANIOCERVICAL JUNCTION: No significant abnormality. ORBITS: No significant abnormality of visualized orbits. SINUSES / MASTOIDS: No significant abnormality the visualized paranasal sinuses or mastoid air cells. ADDITIONAL FINDINGS: Atherosclerotic disease is seen in the anterior circulation. IMPRESSION: 1. No focal mass, hemorrhage, hydrocephalus, or acute, large territorial infarct. Signer Name: Quincy Diaz MD, III Signed: 09/09/2019 10:24 PM Workstation Name: [id number]
[2019-09-09 22:49] LABS: Bilirubin,Urine NEG (Negative); Blood,Urine NEG (Negative); Color,Urine Yellow (Yellow); Mucus,Urine FEW /HPF; Urobilinogen,Urine < 2.0 mg/dL (<2.0)
[2019-09-09 22:54] LABS: Benzodiazepines Screen,Urine PRESUMPTIVE NEGATIVE; Cannabinoid Screen,Urine PRESUMPTIVE NEGATIVE; Cocaine Screen,Urine PRESUMPTIVE NEGATIVE; Methadone Screen,Urine PRESUMPTIVE NEGATIVE
[2019-09-09 23:06] LABS: Amphetamine Screen,Urine PRESUMPTIVE POSITIVE; Opiate Screen,Urine PRESUMPTIVE POSITIVE
[2019-09-10] MEDS ORDERED: ALUM-MAG HYDROXIDE-SIMETHICONE 200-200-20MG/5ML ORAL LIQD 30 ML PO ONE (08:02)
[2019-09-10] MEDS ORDERED: LISINOPRIL 20 MG TAB PO ONE (08:02)
[2019-09-10 11:47] VITALS: BP 174/90
== END 2019-09-10 11:15 | disposition home or self-care (01) ==
LOC: ED 20:46
DX: R41.82 Altered mental status, unspecified (principal); F15.10 Other stimulant abuse, uncomplicated; I10 Essential (primary) hypertension; J44.9 Chronic obstructive pulmonary disease, unspecified
CPT/HCPCS: 36415; 70450; 80053; 80307; 80320; 81001; 82140; 82550; 82553; 82803; 82962; 84439; 84443; 84484; 85025; 93005; 93010; G0480

== ENCOUNTER 2019-10-19 14:55 | Emergency (ER) | payer MEDICARE ==
--- NOTE | 2019-10-19 17:21 | Emergency Department Report ---
ED General Adult HPI - General Chief complaint: Dyspnea/Respdistress Stated complaint: LALITA Time Seen by Provider: 10/19/19 17:20 Source: patient Mode of arrival: Stretcher Limitations: No Limitations - History of Present Illness Initial comments: 69-year-old presents with complaint of shortness of breath. Patient states that her neighbor called the ambulance on her. Patient admits to smoking. Patient is short of breath for the past 6 month. Patient that she is not on home oxygen. Patient complains of associated chest pain as well. Patient complains of a productive cough as well. - Related Data Home Medications Medication Instructions Recorded Confirmed Last Taken Meloxicam [Mobic] 1 tab PO DAILY 05/25/19 05/25/19 Unknown Previous Rx's Medication Instructions Recorded Last Taken Type Albuterol Sulfate [Albuterol 0.63% 0.63 mg IH TID PRN #60 ml 05/26/19 Unknown Rx NEBS] Fluticasone/Salmeterol [Advair 1 each IH BID 30 Days blst.w.dev 05/26/19 Unknown Rx 250-50 Diskus] Ipratropium/Albuterol Sulfate 1 ampul IH Q8HR #90 ampul.neb 05/26/19 Unknown Rx [DUONEB *Not for PRN Use*] Prednisone [predniSONE 10 mg 10 mg PO .TAPER #1 tab.ds.pk 05/26/19 Unknown Rx (6-Day Pack, 21 Tabs)] levoFLOXacin [Levaquin TAB] 500 mg PO QDAY #3 tablet 05/26/19 Unknown Rx lisinopriL [Zestril TAB] 20 mg PO QDAY #30 tablet 05/26/19 Unknown Rx ALBUTEROL NEB's [Proventil 0.083% 2.5 mg IH TID PRN #90 neb 10/19/19 Unknown Rx NEBS] predniSONE [Deltasone] 40 mg PO QDAY 5 Days #10 tab 10/19/19 Unknown Rx Allergies Allergy/AdvReac Type Severity Reaction Status Date / Time No Known Allergies Allergy Verified 05/25/19 13:27 ED Review of Systems ROS: Stated complaint: LALITA Other details as noted in HPI Constitutional: denies: chills, fever Eyes: denies: eye pain, eye discharge, vision change ENT: denies: ear pain, throat pain Respiratory: SOB at rest Cardiovascular: denies: chest pain, palpitations Endocrine: no symptoms reported Gastrointestinal: denies: abdominal pain, nausea, diarrhea Genitourinary: denies: urgency, dysuria, discharge Musculoskeletal: denies: back pain, joint swelling, arthralgia Skin: denies: rash, lesions Neurological: denies: headache, weakness, paresthesias Psychiatric: denies: anxiety, depression Hematological/Lymphatic: denies: easy bleeding, easy bruising ED Past Medical Hx - Past Medical History Hx Hypertension: Yes Hx COPD: Yes Additional medical history: emphysema - Surgical History Past Surgical History?: No - Social History Smoking Status: Unknown if ever smoked Substance Use Type: None - Medications Home Medications: Home Medications Medication Instructions Recorded Confirmed Last Taken Type Meloxicam [Mobic] 1 tab PO DAILY 05/25/19 05/25/19 Unknown History Albuterol Sulfate [Albuterol 0.63% 0.63 mg IH TID PRN #60 ml 05/26/19 Unknown Rx NEBS] Fluticasone/Salmeterol [Advair 1 each IH BID 30 Days blst.w.dev 05/26/19 Unknown Rx 250-50 Diskus] Ipratropium/Albuterol Sulfate 1 ampul IH Q8HR #90 ampul.neb 05/26/19 Unknown Rx [DUONEB *Not for PRN Use*] Prednisone [predniSONE 10 mg 10 mg PO .TAPER #1 tab.ds.pk 05/26/19 Unknown Rx (6-Day Pack, 21 Tabs)] levoFLOXacin [Levaquin TAB] 500 mg PO QDAY #3 tablet 05/26/19 Unknown Rx lisinopriL [Zestril TAB] 20 mg PO QDAY #30 tablet 05/26/19 Unknown Rx ALBUTEROL NEB's [Proventil 0.083% 2.5 mg IH TID PRN #90 neb 10/19/19 Unknown Rx NEBS] predniSONE [Deltasone] 40 mg PO QDAY 5 Days #10 tab 10/19/19 Unknown Rx ED Physical Exam - General Limitations: No Limitations General appearance: alert, in no apparent distress - Head Head exam: Present: atraumatic, normocephalic - Eye Eye exam: Present: normal appearance - ENT ENT exam: Present: mucous membranes moist - Neck Neck exam: Present: normal inspection - Respiratory Respiratory exam: Present: respiratory distress (minimal ), wheezes (diffuse wheezing present) - Cardiovascular Cardiovascular Exam: Present: regular rate, normal rhythm. Absent: systolic murmur, diastolic murmur, rubs, gallop - GI/Abdominal GI/Abdominal exam: Present: soft, normal bowel sounds - Extremities Exam Extremities exam: Present: normal inspection - Back Exam Back exam: Present: normal inspection - Neurological Exam Neurological exam: Present: alert, oriented X3 - Psychiatric Psychiatric exam: Present: normal affect, normal mood - Skin Skin exam: Present: warm, dry, intact, normal color. Absent: rash ED Course Vital Signs 10/19/19 10/19/19 10/19/19 17:16 17:21 17:24 Temperature 98.0 F 98.0 F Pulse Rate 103 H 103 H Pulse Rate [ Anterior Bilateral Throughout] Respiratory 23 23 23 Rate Respiratory Rate [Anterior Bilateral Throughout] Blood Pressure 140/105 Blood Pressure 140/105 [Left] O2 Sat by Pulse 95 95 95 Oximetry 10/19/19 10/19/19 10/19/19 19:15 19:45 20:00 Temperature 98.2 F Pulse Rate 92 H Pulse Rate [ 94 H Anterior Bilateral Throughout] Respiratory 24 Rate Respiratory 20 Rate [Anterior Bilateral Throughout] Blood Pressure 157/102 Blood Pressure 165/103 [Left] O2 Sat by Pulse 97 98 Oximetry 10/19/19 10/19/19 10/19/19 20:15 20:30 20:45 Temperature Pulse Rate 108 H 105 H Pulse Rate [ Anterior Bilateral Throughout] Respiratory 28 H 24 Rate Respiratory Rate [Anterior Bilateral Throughout] Blood Pressure 157/102 138/88 138/80 Blood Pressure [Left] O2 Sat by Pulse 95 96 95 Oximetry 10/19/19 10/19/19 10/19/19 21:00 21:30 21:45 Temperature Pulse Rate 107 H 100 H 102 H Pulse Rate [ Anterior Bilateral Throughout] Respiratory 26 H 24 24 Rate Respiratory Rate [Anterior Bilateral Throughout] Blood Pressure 139/77 150/88 157/82 Blood Pressure [Left] O2 Sat by Pulse 96 98 99 Oximetry 10/19/19 22:00 Temperature Pulse Rate 98 H Pulse Rate [ Anterior Bilateral Throughout] Respiratory 24 Rate Respiratory Rate [Anterior Bilateral Throughout] Blood Pressure Blood Pressure 149/82 [Left] O2 Sat by Pulse 100 Oximetry ED Medical Decision Making - Lab Data Result diagrams: 10/19/19 20:00 10/19/19 20:00 - EKG Data EKG shows normal: sinus rhythm Rate: tachycardia - EKG Data Interpretation: LVH - Medical Decision Making Patient has improved status post receiving nebulized treatment. An attempt was made to call patient's next of kin and no one answered. Patient states she is not on home oxygen. Patient noted to have a O2 sat dipped to 90%. Patient made aware of the need for her to be admitted to the hospital for continued m anagement and treatment. Patient is oriented to person place and time and states that she does not want to be admitted and wants to go home. Patient made aware of the risk of respiratory distress or stop breathing and . Patient states she is aware and wants to go home. - Differential Diagnosis STEMI; NSTEMI; Dehydration; Critical care attestation.: If time is entered above; I have spent that time in minutes in the direct care of this critically ill patient, excluding procedure time. ED Disposition Clinical Impression: COPD exacerbation Disposition: LEFT AGAINST MED ADVICE Is pt being admited?: No Condition: Stable Instructions: Chronic Obstructive Pulmonary Disease (ED) Prescriptions: predniSONE [Deltasone] 40 mg PO QDAY 5 Days #10 tab ALBUTEROL NEB's [Proventil 0.083% NEBS] 2.5 mg IH TID PRN #90 neb PRN Reason: Wheezing Referrals: EVELYN VORA MD [Primary Care Provider] - 3-5 Days Forms: AMA Form Time of Disposition: 21:59 Print Language: DUTCH
[2019-10-19] MEDS ORDERED: IPRATROPIUM 0.02% NEBU 2.5 ML IH ONE (18:10)
[2019-10-19] MEDS ORDERED: ALBUTEROL 2.5 MG/3 ML NEBU IH ONE (18:10)
[2019-10-19] MEDS ORDERED: methylPREDNISolone Sod Succinate 125 MG/2 ML INJ IV ONE (18:10)
--- NOTE | 2019-10-19 19:19 | XRay Report ---
CHEST 1 VIEW 10/19/2019 6:51 PM INDICATION / CLINICAL INFORMATION: chest pain. COMPARISON: 05/25/2019 FINDINGS: SUPPORT DEVICES: None. HEART / MEDIASTINUM: Normal heart size. Atherosclerosis in the thoracic aorta. LUNGS / PLEURA: No significant pulmonary or pleural abnormality. No pneumothorax. ADDITIONAL FINDINGS: No significant additional findings. IMPRESSION: 1. No acute findings. Signer Name: Humza Manley MD Signed: 10/19/2019 7:15 PM Workstation Name: [id number]
[2019-10-19 20:20] LABS: Hematocrit 34.3 % (30.3-42.9); Hemoglobin 11.1 gm/dl (10.1-14.3); Mean Corpuscular HGB Conc 32 % (30-34); Mean Corpuscular Volume 78 fl (79-97); Platelet Count 848 K/mm3 (140-440); Red Blood Count 4.42 M/mm3 (3.65-5.03); Red Cell Distribution Width 19.2 % (13.2-15.2)
[2019-10-19 20:39] LABS: Alanine Aminotransferase 19 units/L (7-56); Albumin 3.3 g/dL (3.9-5); BUN/Creatinine Ratio 17; Blood Urea Nitrogen 15 mg/dL (7-17); Calcium 9.2 mg/dL (8.4-10.2); Hemolysis Index 8
[2019-10-20 00:09] VITALS: BP 137/82
== END 2019-10-19 23:30 | disposition left against medical advice (07) ==
LOC: ED 14:55
DX: J43.9 Emphysema, unspecified (principal); I10 Essential (primary) hypertension; Z79.899 Other long term (current) drug therapy
CPT/HCPCS: 36415; 71045; 80053; 82550; 84484; 85027; 93005; 93010; 94644; 96374; 99284; J2930